=== PATIENT | female | born 1970 | race African-American/Black ===

== ENCOUNTER 2021-08-22 18:11 | Inpatient (IN) | payer MEDICAID ==
[~2021-08-22] VITALS: Ht 172.7 cm; Wt 317.5 kg
--- NOTE | 2021-08-22 22:28 | NUR ---
[facility] SWAB COLLECTED AND SENT TO LAB. PATIENT'S BELONGINGS LIST DONE.
--- NOTE | 2021-08-22 23:30 | NUR ---
3 LUMEN PICC LINE WAS INSERTED BY KEVIN VICKERS AT BED SIDE. DR KING SIGNED THE EMERGENCY CONCENT
--- NOTE | 2021-08-22 23:36 | NUR ---
blood and urine collected and sent to the lab
[2021-08-22 23:52] LABS: CALCIUM, SERUM 8.6 mg/dL (8.5-10.1); CARBON DIOXIDE 36 mmol/L (21-32); CHLORIDE 98 mmol/L (98-107); CREATININE 1.1 mg/dL (0.6-1.3); GLUCOSE 104 mg/dL (74-106); SODIUM SERUM 139 mmol/L (136-145); UREA NITROGEN, BLOOD 31 mg/dL (7-18)
[2021-08-23] VITALS (79 sets, daily range): BP systolic 39–183; BP diastolic 28–130
[2021-08-23] MEDS ORDERED: LEVOFLOXACIN 750 MG /D5W 150ML PIGGYBACK IV ONE
[2021-08-23 00:01] LABS: BILIRUBIN,URINE MODERATE (NEGATIVE); COLOR,URINE DARK YELLOW (YELLOW); LEUKOCYTE ESTERASE ,URINE NEGATIVE (NEGATIVE); NITRITE, URINE NEGATIVE (NEGATIVE); PROTEIN,URINE 100 mg/dl (NEGATIVE); UGLUCOSE NEGATIVE (NEGATIVE)
[2021-08-23 00:01] LABS: BASOPHILS % (AUTO) 0.1 % (0.0-2.0); EOSINOPHILS % (AUTO) 0.1 % (0.0-6.0); HEMATOCRIT 42 % (33-45); HEMOGLOBIN 12.3 g/dL (11.5-14.8); LYMPHOCYTES # (AUTO) 0.9 K/uL (0.8-4.8); LYMPHOCYTES % (AUTO) 7.6 % (20.0-44.0); MEAN CORPUSCULAR HGB CONC 29 g/dl (31.0-36.0); MEAN CORPUSCULAR VOLUME 82 fL (82-100); MONOCYTES # (AUTO) 0.4 K/uL (0.1-1.30); MONOCYTES % (AUTO) 3.8 % (2.0-12.0); NEUTROPHILS # (AUTO) 10.3 K/uL (1.8-8.9); NEUTROPHILS % (AUTO) 88.4 % (43.0-81.0); PLATELET COUNT (AUTO) 161 K/uL (150-450); RED BLOOD CELL COUNT(AUTO) 5.07 MIL/uL (4.0-5.2); WHITE BLOOD COUNT (AUTO) 11.7 K/uL (4.3-11.0)
[2021-08-23 00:05] LABS: ALANINE AMINOTRANSFERASE 42 U/L (12-78); ALBUMIN 3.2 g/dL (3.4-5.0); ALKALINE PHOSPHATASE 96 U/L (46-116); ASPARTATE AMINOTRANSFERASE 45 U/L (15-37); BILIRUBIN,DIRECT 0.5 mg/dL (0.0-0.2); BILIRUBIN,TOTAL 1.3 mg/dL (0.2-1.0); TOTAL PROTEIN, SERUM 8.1 g/dL (6.4-8.2)
[2021-08-23 00:22] LABS: D-DIMER 14.35 mg/L(FEU (0.17-0.50)
[2021-08-23] MEDS ORDERED: FUROSEMIDE 40 MG/4 ML VIAL ONE (00:25)
[2021-08-23] MEDS ORDERED: LEVOFLOXACIN 750 MG /D5W 150ML 150 ML IV ONE (00:25)
[2021-08-23 00:27] LABS: ABG BASE EXCESS 1.3 mmol/L; ABG OXYGEN SATURATION 94.5 % (92.0-98.5); ABG PCO2 121.7 mmHg (35.0-45.0); ABG PH 7.079 (7.350-7.450); ABG PO2 94.1 mmHg (75.0-100.0); AaDO2 497.2 mmHg; COHb 1.5 % (0.5-1.5); MetHb 0.4 % (0.0-1.5); O2Hb 92.7 % (94.0-97.0); SITE, ABG Right Radial; VENT MODE, BG NRB 15L
--- NOTE | 2021-08-23 00:28 | NUR ---
RT NOTE CRITICAL ABG VALUE GIVEN TO ER DOCTOR.
[2021-08-23] MEDS ORDERED: FUROSEMIDE 40 MG/4 ML VIAL IV ONE (00:30)
--- NOTE | 2021-08-23 00:44 | NUR ---
EPIC PANEL PAGED
--- NOTE | 2021-08-23 00:52 | NUR ---
RT NOTE PT PLACED ON BIPAP 20/5 100 % RATE 20 PER MD ORDERS. WILL CONTINUE TO MONITOR T/O SHIFT.
[2021-08-23] MEDS ORDERED: ACETAMINOPHEN 650 MG/SUPP.RECT RC PRN (01:00)
[2021-08-23] MEDS ORDERED: DEXTROSE 50%-WATER 50 ML DISP.SYRIN IV PRN (01:00)
[2021-08-23 01:21] LABS: C-REACTIVE PROTEIN 10.8 mg/dL (0.0-0.9)
--- NOTE | 2021-08-23 02:11 | NUR ---
RT NOTE UNABLE TO OBTAIN ABG AT THIS TIME, PT COMPLAINING IT HURTS, REMOVE THE NEEDLE, DONT DRAW ANY MORE BLOODAND MOVING AROUND TOO MUCH. PT IS MORE ALERT NOW THAN BEFORE SHE WAS PLACED ON BIPAP. PT REACHING FOR BIPAP MASK, IF TO REMOVE IT. RN NOTIFIED. NOTIFIED. SPO2 READING 96-99% ON CURRENT SETTING. WILL CONTINUE TO MONITOR T/O SHIFT
[2021-08-23] MEDS ORDERED: AZITHROMYCIN 500 MG VIAL ONE (03:05)
[2021-08-23] MEDS ORDERED: HEPARIN INFUSION/D5W 500 ML IV ONE (03:06)
--- NOTE | 2021-08-23 03:33 | NUR ---
RN/ICU-ADMITTED THIS 50 Y/O MORBIDLY OBESE FEMALE FROM ER VIA BARIATRIC BED, ACCOMPANIED BY ER STAFF.W/ DIAGNOSIS:RESPIRATORY FAILURE, PRESUMED COVID 19. ON NRB, IMMEDIATELY HOOKED UP TO BIPAP W/C WAS INITIALLY REFUSED BY PT. W/ SETTINGS RATE-20,I/E-20/5, SATS.-100%, INITIAL SATS-92%. ROUTINE ICU ADMISSION CARE INITIATED. PT. UNCOOPERATIVE, REFUSED TO HOSPITAL GOWN FROM [facility],REFUSED WHOLE BODY/SKIN CHECK, NOTED TO HAVE GENERALIZED, DEPENDENT EDEMA.. ON DROPLET/AIRBORNE ISOLATION R/O COVID 19, AWAITING PCR RESULT.AFEBRILE,
--- NOTE | 2021-08-23 03:47 | NUR ---
RT NOTE TRANSPORTED PT FROM ER BED 8 TO ICU 255, ON NRB 15LPM. ONCE PLACED IN BED 255 PLACED PT BACK ON BIPAP. WILL ATTEMPT TO DO ABG AGAIN. PLUGGED INTO RED OUTLET, AMBU BAG AT BEDSIDE ALONG WITH NRB. NO SOB NOTED. INFORMED PT OF ABG TO BE DONE SOON. WILL CONTINUE TO MONITOR T/O SHIFT.
[2021-08-23] MEDS: AZITHROMYCIN 500 MG in IV D5W 250 ML IV SCH (03:50)
--- NOTE | 2021-08-23 03:52 | NUR ---
pt transferred to icu per acls protocol.
--- NOTE | 2021-08-23 04:03 | NUR ---
RT NOTE RT LEAD ATTEMPTED TO PREFORM ABG, ONCE SHE WAS STUCK WITH NEEDLE SHE SAID: "ITS TOO PAINFUL, REMOVE IT". ABG NOT PREFORMED. SEALANT MIXER NOTIFIED. LEFT ON CURRENT BIPAP SETTING. WILL CONTINUE TO MONITOR T/O SHIFT.
--- NOTE | 2021-08-23 04:14 | NUR ---
RN/ICU- PT. WILL BE STARTED ON HEPARIN DRIP NON-ACS PROTOCOL. SPOKE TO PH. LEE REGARDING APPROPRIATE DOSING FOR THIS 318KG. PT.
[2021-08-23] MEDS ORDERED: HEPARIN SODIUM, PORCINE 5000 UNITS/1 ML VIAL IV ONE (04:30)
[2021-08-23] MEDS: HEPARIN INFUSION/D5W 500 ML IV PRN ×2 (04:46→17:28)
--- NOTE | 2021-08-23 05:00 | NUR ---
RN NOTE RECEIVED PATIENT IN BED ALERT ORIENTED X3 VERBALLY RESPONSIVE ON BIPAP AND HEPARIN DRIP CONTINUE TO MONITOR.
--- NOTE | 2021-08-23 05:00 | NUR ---
RN/ICU-PT. ASLEEP, AROUSABLE, ON HEPARIN DRIP AT 1800UNIT/HR PER NON ACS PROTOCOL. PTT CHECK WILL BE AT 1100. PT. CARE GIVEN TO MELCHOR PHILLIPS
--- NOTE | 2021-08-23 05:56 | NUR ---
RN NOTE PATIENT REFUSED SKIN ASSESSMENT AND REFUSED LAB ABG EXPLAINED RISKS STILL REFUSED.
[2021-08-23] MEDS: BLOOD SUGAR DIAGNOSTIC 1 EACH STRIP IN SCH ×4 (05:58→23:45)
[2021-08-23] MEDS: INSULIN REGULAR, HUMAN 100 UNIT/ML 3 ML VIAL SQ PRN ×2 (06:38→13:30)
--- NOTE | 2021-08-23 07:15 | NUR ---
RN NOTES RECEIVED PT ON BED, LETHARGIC , DOES NOT FOLLOW COMMAND, PT ON BIPAP , O2 SAT IN LOW 90'S , NOTIFIED , STAT ABG ORDERED, DR WELLS NOTIFIED REGARDING ABG RESULTS , ORDER RECEIVED TO INTUBATED PT , NURSING SUP NOTIFIED,PT IS ABOUT 700 LB ON BIG BOY BED, CONTINUE TO MONITOR .
--- NOTE | 2021-08-23 07:30 | NUR ---
RN NOTE PATIENT REMAINS ON ALERT ORIENTED X3 VERBALLY RESPONSIVE ON BIPAP AND HEPARIN DRIP ENDORSE NEXT COMING SHIFT FOR CONTINUATION OF CARE.
[2021-08-23 07:33] LABS: ABG BASE EXCESS 4.8 mmol/L; ABG OXYGEN SATURATION 99.2 % (92.0-98.5); ABG PCO2 144.4 mmHg (35.0-45.0); ABG PO2 206.6 mmHg (75.0-100.0); COHb 1.1 % (0.5-1.5); MetHb 0.5 % (0.0-1.5); O2Hb 97.6 % (94.0-97.0); SITE, ABG Right Radial; VENT MODE, BG BIPAP 20/5
[2021-08-23] MEDS: FUROSEMIDE 40 MG/4 ML VIAL IV SCH ×2 (08:11→16:20)
[2021-08-23] MEDS: DEXAMETHASONE SOD PHOSPHATE 10 MG/ML VIAL IV SCH ×2 (08:11→16:21)
[2021-08-23 08:34] LABS: CALCIUM, SERUM 9.1 mg/dL (8.5-10.1); CREATININE 1.1 mg/dL (0.6-1.3)
[2021-08-23 08:50] LABS: BASOPHILS % (AUTO) 0.1 % (0.0-2.0); EOSINOPHILS % (AUTO) 0.1 % (0.0-6.0); HEMATOCRIT 42 % (33-45); HEMOGLOBIN 12.2 g/dL (11.5-14.8); LYMPHOCYTES # (AUTO) 0.6 K/uL (0.8-4.8); MEAN CORPUSCULAR HGB CONC 29 g/dl (31.0-36.0); MEAN CORPUSCULAR VOLUME 85 fL (82-100); MONOCYTES # (AUTO) 0.5 K/uL (0.1-1.30); MONOCYTES % (AUTO) 4.4 % (2.0-12.0); NEUTROPHILS # (AUTO) 10.2 K/uL (1.8-8.9); NEUTROPHILS % (AUTO) 90.4 % (43.0-81.0); PLATELET COUNT (AUTO) 165 K/uL (150-450); RED BLOOD CELL COUNT(AUTO) 4.96 MIL/uL (4.0-5.2); WHITE BLOOD COUNT (AUTO) 11.3 K/uL (4.3-11.0)
[2021-08-23] MEDS: NOREPINEPHRINE 8 MG in IV NS 0.9% 242 ML IV PRN ×2 (09:00→10:50)
[2021-08-23] MEDS ORDERED: ENOXAPARIN SODIUM 40 MG/0.4 ML DISP.SYRIN SQ SCH (09:00)
--- NOTE | 2021-08-23 09:00 | NUR ---
RN NOTES PT INTUBATED PER DR WELLS ORDER , CONTINUE TO MONITOR .
--- NOTE | 2021-08-23 09:00 | NUR ---
RN NOTES MILES AND OGT INSERTED.
--- NOTE | 2021-08-23 09:00 | NUR ---
RT Pt was orally intubated with a 7.5 ET tube secured at 25cm at the lip line, positive CO2 color change on CO2 indicator, equal bilateral breath sounds, and chest rise noted. Pt placed on mechanical ventilation with noted settings. Vent alarms are set and audible with BVM by bedside. Addendum: 08/23/21 at 0943 by ZBIGNIEW NGUYỄN RT Amended: Links added.
[2021-08-23] MEDS: PROPOFOL 100 ML IV PRN ×6 (09:42→21:19)
--- NOTE | 2021-08-23 11:00 | NUR ---
RN NOTES BP IS VERY LABILE , PT IS 700 LB , DR CARRILLO NOTIFIED, ORDER RECEIVED FOR A- LINE , NURSING SUP NOTIFIED FOR A- LINE PLACEMENT .
[2021-08-23 11:24] LABS: ABG BASE EXCESS 0.2 mmol/L; ABG OXYGEN SATURATION 97.7 % (92.0-98.5); ABG PCO2 45.2 mmHg (35.0-45.0); ABG PH 7.374 (7.350-7.450); ABG PO2 90.4 mmHg (75.0-100.0); AaDO2 432.5 mmHg; COHb 1.2 % (0.5-1.5); MetHb 0.2 % (0.0-1.5); O2Hb 96.3 % (94.0-97.0); SITE, ABG Right Radial
[2021-08-23] MEDS: NOREPINEPHRINE 32 MG in IV NS 0.9% 218 ML IV PRN ×2 (11:44→17:29)
--- NOTE | 2021-08-23 13:00 | NUR ---
RN NOTES PT ON BARIATRIC BED ON AUTOMATIC TURNING.
[2021-08-23] MEDS ORDERED: ETOMIDATE 2 MG/ML VIAL IV ONE (13:47)
[2021-08-23] MEDS ORDERED: SUCCINYLCHOLINE CHLORIDE 20 MG/ML VIAL IV ONE (13:47)
[2021-08-23 13:56] LABS: BAND % (MANUAL) 1 % (0.0-5.0); LYMPHOCYTES % (MANUAL) 6 % (16-48); MONOCYTES % (MANUAL) 4 % (0-11.0); NEUTROPHILS % (MANUAL) 89 (42-76)
--- NOTE | 2021-08-23 15:00 | NUR ---
RN NOTES PT INTUBATED AND SEDATED, ON LEVO FOR BP SUPPORT, CONTINUE TO MONITOR .
--- NOTE | 2021-08-23 18:00 | NUR ---
RN NOTES PT REMAINS INTUBATED AND SEDATED, ON DIPRIVAN AT 20MCG/KG/MIN, LEVO DRIP FOR BP SUPPORT AT .06MCG/KG/MIN, ON HEPARIN DRIP AT 1800 U/HR, TOLERAING VENT SETTING WELL, R UPPER ARM PICC LINE SITE CLEAN, DRY AND INTACT, MILES DRAINING TO GRAVITY ,SR UP x3, CALL WITHIN EASY REACH, WILL ENDORSE TO ARCHEOLOGIST NURSE FOR CONTINUITY OF CARE.
--- NOTE | 2021-08-23 20:45 | NUR ---
ICU/NETWORK DESIGN ARCHITECT PRINTER SLOTTER FEEDER CAME TO DO LOWER EXTREMITY DOPPLER STUDY TO R/O DVT TO LEGS. WAS UNABLE DUE TO PT'S SIZE OF LEGS THERE WASN'T A CLEAR READ ON THIS. CHARGE NURSE MADE AWARE OF THIS.
--- NOTE | 2021-08-23 21:20 | NUR ---
ICU/CONSUMER BANKER CALLED NURSING SUP. ABOUT GETTING HELP WITH PM CARE FOR THIS PT DUE TO THE FACT THAT THIS PT IS 700LBS AND UNABLE TO DO THIS WITH THE STAFF ON THE FLOOR. PT IS ON A TURNING BED. BUT UNABLE TO LIFT PT WITH ONLY 3 PEOPLE. SHE SAID SHE WOULD CALL MD BACK. CHARGE NURSE MADE AWARE OF THIS.
--- NOTE | 2021-08-23 23:30 | NUR ---
ICU/CAT WAGON OPERATOR PT'S BLOOD PRESSURE HAS BEEN STABLE, NOTIFED SPRING FORGER NURSE LEVO DRIP WAS DECREASED DOWN FOR STABLE BLOOD PRESSURE. WILL CONTINUE TO MONITOR THIS PT'S BP.
[2021-08-24] VITALS (90 sets, daily range): BP systolic 81–135; BP diastolic 56–98
[2021-08-24] MEDS: PROPOFOL 100 ML IV PRN ×10 (00:26→22:30)
[2021-08-24] MEDS: LEVOFLOXACIN 750 MG /D5W 150ML 750 MG in PREMIX 1 EA IV SCH (00:26)
--- NOTE | 2021-08-24 01:10 | NUR ---
ICU/CONSERVATION ENFORCEMENT OFFICER [employer] CALLED [employer] RESOLUTES OF THE DOPPLER STUDY WHICH WAS DONE EARLY IN SHIFT. PT IS CURRENTLY ON A HEPARIN DRIP. NOTIFED PRENATAL NURSE BOURGEOIS. NO ORDERS WERE RECIEVED.
[2021-08-24] MEDS: AZITHROMYCIN 500 MG in IV D5W 250 ML IV SCH (02:05)
--- NOTE | 2021-08-24 02:46 | NUR ---
ICU/RISK MANAGEMENT INTERNSHIP RT WAS ABLE TO TITRATE FIO2 DOWN TO 40% FROM 60. WILL CONTINUE TO MONITOR THIS PT AND HER SATURATION. 0230-LEVO WAS PLACED ON HOLD FOR STABLE BLOOD PRESSURE. WILL CONTINUE TO MONITOR THIS PT AND HER BLOOD PRESSURE.
--- NOTE | 2021-08-24 03:30 | NUR ---
ICU/AWARD CLERK LEVO WAS RESTARTED DUE TO LOW BLOOD PRESSURE. WILL CONTINUE TO MONITOR THIS PT AND HIS BP.
[2021-08-24 04:43] LABS: BASOPHILS % (AUTO) 0.3 % (0.0-2.0); HEMATOCRIT 40 % (33-45); HEMOGLOBIN 11.7 g/dL (11.5-14.8); LYMPHOCYTES # (AUTO) 0.5 K/uL (0.8-4.8); MEAN CORPUSCULAR HGB CONC 29 g/dl (31.0-36.0); MEAN CORPUSCULAR VOLUME 81 fL (82-100); MONOCYTES # (AUTO) 0.3 K/uL (0.1-1.30); MONOCYTES % (AUTO) 2.3 % (2.0-12.0); NEUTROPHILS # (AUTO) 12.2 K/uL (1.8-8.9); NEUTROPHILS % (AUTO) 93.4 % (43.0-81.0); PLATELET COUNT (AUTO) 147 K/uL (150-450); RED BLOOD CELL COUNT(AUTO) 4.89 MIL/uL (4.0-5.2)
[2021-08-24 05:43] LABS: ALBUMIN 2.7 g/dL (3.4-5.0); BILIRUBIN,TOTAL 1.5 mg/dL (0.2-1.0); CALCIUM, SERUM 8.4 mg/dL (8.5-10.1); CREATININE 0.8 mg/dL (0.6-1.3); MAGNESIUM 2.2 mg/dL (1.8-2.4); PHOSPHORUS 3.5 mg/dL (2.5-4.9); POTASSIUM 4.2 mmol/L (3.5-5.1); TOTAL PROTEIN, SERUM 7.2 g/dL (6.4-8.2)
[2021-08-24 06:27] LABS: THYROID STIMULATING HORMONE 0.517 uIU/mL (0.358-3.74)
--- NOTE | 2021-08-24 06:30 | NUR ---
ICU/MEDIA SALES REPRESENTATIVE NURSING SUP. AWARE THAT UNABLE TO PROVIDE CARE FOR THIS PT DUE TO THE SIZE. HOUSE SUP. SAID THAT TODAY DAY SHIFT WILL BE GIVEN A FASHION BUYING INTERNSHIP TO HELP WITH CARE FOR THIS PT.
[2021-08-24] MEDS: BLOOD SUGAR DIAGNOSTIC 1 EACH STRIP IN SCH ×4 (06:38→23:29)
[2021-08-24] MEDS: INSULIN REGULAR, HUMAN 100 UNIT/ML 3 ML VIAL SQ PRN ×3 (06:39→17:05)
[2021-08-24] MEDS: HEPARIN INFUSION/D5W 500 ML IV PRN ×2 (06:45→20:06)
--- NOTE | 2021-08-24 07:42 | NUR ---
RN OPENING NOTES; RECEIVED PT IN BED, IN SUPINE POS. [facility] WITH SETTINGS ORDERED. PT ON HEPARIN 1,800U, PROPOFOL AT 20MCG, LEVO 0.02MCG. PATENT AND INFUSING WELL. PT IS SEDATED. ALL SAFETY MEASURES RENDERED, BED IN LOWEST POS. LOCKED, WITH CALL LIGHT WITHIN REACH. WILL CONTINUE TO MONITOR.
[2021-08-24] MEDS: DEXAMETHASONE SOD PHOSPHATE 10 MG/ML VIAL IV SCH ×2 (08:23→16:05)
[2021-08-24] MEDS: FUROSEMIDE 40 MG/4 ML VIAL IV SCH ×2 (08:23→16:05)
[2021-08-24 10:56] LABS: ABG BASE EXCESS 9.4 mmol/L; ABG OXYGEN SATURATION 94.5 % (92.0-98.5); ABG PCO2 49.8 mmHg (35.0-45.0); ABG PH 7.461 (7.350-7.450); ABG PO2 72.8 mmHg (75.0-100.0); AaDO2 155.1 mmHg; COHb 0.9 % (0.5-1.5); MetHb 0.2 % (0.0-1.5); O2Hb 93.5 % (94.0-97.0); SITE, ABG Right Radial; VENT MODE, BG AC 15 550 40% +5
--- NOTE | 2021-08-24 11:03 | NUR ---
RN NOTES; BS TAKEN WITH RESULT OF 117. NO INSULIN GIVEN PER SLIDING SCALE. WILL CONTINUE TO MONITOR.
--- NOTE | 2021-08-24 15:05 | NUR ---
TOÑO received eval for: Pt. is 700 LB. TOÑO spoke with ICU nurse, Irvin regarding pt.'s condition. Pt. is currently sedated and intubated. TOÑO is not able to interview pt. at this time.
--- NOTE | 2021-08-24 18:46 | NUR ---
RN CLOSING NOTES PT IN BED SEDATED. PT ON MECH. VENT WITH SETTINGS ORDERED. PT ON HEPARIN 1,800U, PROPOFOL AT 20MCG AND LEVO RUNNING AT 0.01 MCG. JENNY ML PATENT, FLUSHED AND RUNNING WELL. BILATERAL SOFT WRIST RESTRAINS RENEWED PER PROTOCOL AT 1307.ALL MEDICATION GIVEN AND TOLERATED WELL. PT KEPT CLEAN, DRY, AND COMFORTABLE. ALL SAFETY MEASURES RENDERED, BED IN LOWEST POS. LOCKED, SIDE RAILS UP X3, WITH CALL LIGHT WITHIN REACH. NO SIGNIFICANT CHANGES IN PT HEALTH STATUS DURING SHIFT. WILL ENDORSE TO DIESEL AUTOMOTIVE TECHNICIAN RN.
--- NOTE | 2021-08-24 19:45 | NUR ---
ICU/DIELECTRIC TESTING MACHINE OPERATOR PT CARE WAS ATTEMPTED WITH ONLY 3 PEOPLE NURSES HOWEVER THIS WAS UNSUCCESSFUL. UNAWARE OF SKIN ISSUES ON THE BACK
--- NOTE | 2021-08-24 20:15 | NUR ---
ICU/BARISTA PT'S BLOOD PRESSURE IS STABLE AT 120'S THROUGH X3 CYCLES. LEVO WAS PUT ON HOLD AT THIS TIME. WILL CONTINUE TO CLOSELY MONITOR THIS PT.
--- NOTE | 2021-08-24 21:40 | NUR ---
ICU/GRAPHIC USER INTERFACE DESIGNER NURSING SUP. WAS NOTIFED ABOUT GETTING HELP WITH PM CARE FOR THIS PT DUE TO THE FACT THAT THIS PT IS 700LBS AND UNABLE TO DO THIS WITH THE STAFF ON THE FLOOR.PT WAS TRANSFERED WITH 10 PEOPLE. PT IS ON A TURNING BED. UNABLE TO LIFT PT WITH CURRENT NURSING STAFF OF 4 PEOPLE.
[2021-08-25] VITALS (34 sets, daily range): BP systolic 101–127; BP diastolic 56–91
[2021-08-25] MEDS: LEVOFLOXACIN 750 MG /D5W 150ML 750 MG in PREMIX 1 EA IV SCH (00:34)
[2021-08-25] MEDS: PROPOFOL 100 ML IV PRN ×4 (00:40→08:02)
[2021-08-25] MEDS: AZITHROMYCIN 500 MG in IV D5W 250 ML IV SCH (02:15)
[2021-08-25 05:12] LABS: CALCIUM, SERUM 8.9 mg/dL (8.5-10.1); CREATININE 0.7 mg/dL (0.6-1.3); POTASSIUM 3.6 mmol/L (3.5-5.1)
[2021-08-25 05:17] LABS: BASOPHILS % (AUTO) 0.1 % (0.0-2.0); HEMATOCRIT 39 % (33-45); HEMOGLOBIN 11.8 g/dL (11.5-14.8); LYMPHOCYTES # (AUTO) 0.3 K/uL (0.8-4.8); LYMPHOCYTES % (AUTO) 3.6 % (20.0-44.0); MEAN CORPUSCULAR HGB CONC 31 g/dl (31.0-36.0); MEAN CORPUSCULAR VOLUME 80 fL (82-100); MONOCYTES # (AUTO) 0.3 K/uL (0.1-1.30); MONOCYTES % (AUTO) 3.7 % (2.0-12.0); NEUTROPHILS # (AUTO) 7.6 K/uL (1.8-8.9); NEUTROPHILS % (AUTO) 92.6 % (43.0-81.0); PLATELET COUNT (AUTO) 122 K/uL (150-450); RED BLOOD CELL COUNT(AUTO) 4.85 MIL/uL (4.0-5.2); WHITE BLOOD COUNT (AUTO) 8.2 K/uL (4.3-11.0)
[2021-08-25] MEDS: BLOOD SUGAR DIAGNOSTIC 1 EACH STRIP IN SCH ×4 (05:20→23:51)
[2021-08-25] MEDS ORDERED: HEPARIN SODIUM, PORCINE 5000 UNITS/1 ML VIAL IVF ONE (06:30)
--- NOTE | 2021-08-25 06:37 | NUR ---
ICU/ESL TUTOR PTT CAME BACK AY 43.6 THIS WAS ADJUSTED PER HEPARIN PROTOCOL. INCREASED AND ADJUSTED FOR A NEW RATE OF 1999.
--- NOTE | 2021-08-25 07:27 | NUR ---
RN OPENING NOTES; RECEIVED PT IN BED, IN SUPINE POS. PT ON MECH VENT WITH SETTINGS ORDERED. PT ON HEPARIN 2,000U, PTT SCHEDULED FOR NOON. PROPOFOL AT 20MCG. PATENT AND INFUSING WELL. PT IS SEDATED. ALL SAFETY MEASURES RENDERED, BED IN LOWEST POS. LOCKED, WITH CALL LIGHT WITHIN REACH. WILL CONTINUE TO MONITOR.
--- NOTE | 2021-08-25 07:44 | NUR ---
WOUND CARE CONSULT: REVIEWED CHART AND NURSING DOCUMENTATION WHICH INDICATES MORBIDLY OBESE PATIENT CURRENTLY INTUBATED. PT IS ON BARIATRIC BED ([place] ETS AIR BED). RECOMMENDATIONS MADE FOR SKIN PROTECTION. DISCUSSED WITH NURSING STAFF. MD IN AGREEMENT WITH PLAN OF CARE.
[2021-08-25] MEDS: FUROSEMIDE 40 MG/4 ML VIAL IV SCH ×2 (08:00→16:20)
[2021-08-25] MEDS: DEXAMETHASONE SOD PHOSPHATE 10 MG/ML VIAL IV SCH ×2 (08:00→16:19)
[2021-08-25] MEDS: HEPARIN INFUSION/D5W 500 ML IV PRN ×2 (08:01→20:40)
[2021-08-25] MEDS ORDERED: Z GUARD REMEDY 4 OZ OINT TP PRN (09:00)
[2021-08-25] MEDS: Z GUARD REMEDY 4 OZ OINT TP SCH (09:19)
[2021-08-25] MEDS: INSULIN REGULAR, HUMAN 100 UNIT/ML 3 ML VIAL SQ PRN ×2 (11:10→17:04)
--- NOTE | 2021-08-25 11:10 | NUR ---
RN NOTES; B/S TAKEN WITH RESULTS OF 114. NO COVERAGE NEEDED PER SLIDING SCALE.
[2021-08-25 11:13] LABS: ABG BASE EXCESS 13.1 mmol/L; ABG OXYGEN SATURATION 98.4 % (92.0-98.5); ABG PCO2 48.9 mmHg (35.0-45.0); ABG PH 7.509 (7.350-7.450); ABG PO2 108.7 mmHg (75.0-100.0); AaDO2 120.3 mmHg; COHb 0.9 % (0.5-1.5); MetHb 0.3 % (0.0-1.5); O2Hb 97.2 % (94.0-97.0); PEEP,BG 5 cm H2O; SITE, ABG Right Radial
[2021-08-25] MEDS ORDERED: DC PROPOFOL WHEN EXTUBATED XX PRN (11:30)
[2021-08-25] MEDS ORDERED: MAGN200T4 PO (15:10)
[2021-08-25] MEDS ORDERED: AMIN887L PO (15:10)
[2021-08-25] MEDS ORDERED: DILT-32 PO (15:10)
[2021-08-25] MEDS ORDERED: CALC500T52 PO (15:10)
[2021-08-25] MEDS ORDERED: DILT180C93 PO (15:10)
[2021-08-25] MEDS ORDERED: DOCU-141 PO (15:10)
[2021-08-25] MEDS ORDERED: MORP30TA PO (15:10)
--- NOTE | 2021-08-25 19:02 | NUR ---
RN CLOSING NOTES; PT IN BED IN SUPINE POS. A/OX2 WITH EPISODES OF CONFUSION. PT WAS ON SEDATION VACATION STARTING AT 9AM. PT EXTUBATED AT 11:20A. PT TOLERATING ROOM AIR SATTING BETWEEN 90-92%. PER OKAY ON FOR PT TO BE ON ROOM AIR IF 02 SAT IS 88% OR ABOVE. PT HAD LARGE BOWELL MOVEMENT TODAY. PT ON HEPARIN DRIP AT 2,000U. PTT RESULTS FOR NOON 54.6, NO CHANGE IN RATE PER PROTOCOL. PTT SCHEDULED FOR AT 5AM. PT IS FULL ASSIST NEEDED 6 PEOPLE TO HELP TURN, REPOSITION AND CHANGE LINIENS. BILATERAL RESTRAINTS DISCONTINUED AT APPROXIMATELY 11:30A. ALL MEDICATION GIVEN AND TOLERATED WELL. PT KEPT CLEAN, DRY, AND COMFORTABLE. ALL SAFETY MEASURES RENDERED. BED IN LOWEST POS, LOCKED, SIDE RAILS X3 WITH CALL LIGHT WITHIN REACH. WILL ENDORSE TO CAREER CONSULTANT RN. PT IN STABLE CONDITION.
[2021-08-26] VITALS (16 sets, daily range): BP systolic 98–120; BP diastolic 55–81
--- NOTE | 2021-08-26 00:30 | NUR ---
ICU/WELL LOGGER PT WAS GIVEN PM CARE WITH 5 PEOPLE ASST. WITH TURNING AND REPOSITIONING. PT TOLERATED THIS WELL. PT REMAINS ON 2 LITERS VIA N/C WITH SATURATION AT 98%. CALL LIGHT WITHIN REACH.
[2021-08-26] MEDS: LEVOFLOXACIN 750 MG /D5W 150ML 750 MG in PREMIX 1 EA IV SCH (00:51)
--- NOTE | 2021-08-26 01:04 | NUR ---
PT PLACED ON NOC BIPAP. RN AWARE. WILL CONTINUE TO MONITOR.
--- NOTE | 2021-08-26 01:10 | NUR ---
ICU/COMMUNICATIONS EQUIPMENT OPERATOR PT WAS PLACED ON NIGHT BIPAP. CALL LIGHT WITHIN REACH. WILL CONTINUE TO MONITOR THIS PT AND HER SATURATION.
[2021-08-26] MEDS: AZITHROMYCIN 500 MG in IV D5W 250 ML IV SCH (01:56)
--- NOTE | 2021-08-26 02:45 | NUR ---
ICU/EXPLOSIVES DETONATOR PT TOOK OFF BIPAP AND WANTED THE N/C PUT BACK ON. THIS WAS DONE. WILL MONITOR THIS PT.
--- NOTE | 2021-08-26 03:28 | NUR ---
PT DID NOT WANT TO USE BIPAP ANYMORE. PT PLACED ON 2L NC O2 SAT 97% NO SOB. RN AWARE. CONTINUE TO MONITOR.
[2021-08-26 04:44] LABS: BASOPHILS % (AUTO) 0.2 % (0.0-2.0); HEMATOCRIT 37 % (33-45); HEMOGLOBIN 11.4 g/dL (11.5-14.8); LYMPHOCYTES # (AUTO) 0.4 K/uL (0.8-4.8); LYMPHOCYTES % (AUTO) 4.8 % (20.0-44.0); MEAN CORPUSCULAR HGB CONC 30 g/dl (31.0-36.0); MEAN CORPUSCULAR VOLUME 79 fL (82-100); MONOCYTES # (AUTO) 0.7 K/uL (0.1-1.30); MONOCYTES % (AUTO) 8.8 % (2.0-12.0); NEUTROPHILS # (AUTO) 6.9 K/uL (1.8-8.9); NEUTROPHILS % (AUTO) 86.2 % (43.0-81.0); PLATELET COUNT (AUTO) 121 K/uL (150-450); RED BLOOD CELL COUNT(AUTO) 4.72 MIL/uL (4.0-5.2)
[2021-08-26 05:18] LABS: CALCIUM, SERUM 8.2 mg/dL (8.5-10.1); CREATININE 0.6 mg/dL (0.6-1.3)
[2021-08-26] MEDS: BLOOD SUGAR DIAGNOSTIC 1 EACH STRIP IN SCH ×4 (05:54→23:50)
--- NOTE | 2021-08-26 06:22 | NUR ---
ICU/LEAD RADIATION THERAPIST PT'S MORNING LAB OF PTT 59.5, THERE IS NO CHANGE WITH THIS DRIP. IN THE MORNING WILL BE THE NEXT PTT.
--- NOTE | 2021-08-26 07:10 | NUR ---
RN OPENING NOTES; RECEIVED PT IN BED, A/OX1. PT ON HEPARIN DRIP AT 2000U, RUNNING WELL WITH NO SIGNS ON INFILTRATION. PT ABLE TO VERBALIZE NEEDS, NO C/O PAIN AT THIS TIME. PT ON ROOM AIR. NO SOB NOTED. NO DISTRESS NOTED. SAFETY MEASURES RENDERED, BED LOCKED, IN LOWEST POS. SIDE RAILS X3 WITH CALL LIGHT WITHIN REACH. WILL CONTINUE TO MONITOR.
[2021-08-26] MEDS: Z GUARD REMEDY 4 OZ OINT TP SCH (08:11)
[2021-08-26] MEDS: FUROSEMIDE 40 MG/4 ML VIAL IV SCH (08:11)
[2021-08-26] MEDS: DEXAMETHASONE SOD PHOSPHATE 10 MG/ML VIAL IV SCH (08:12)
[2021-08-26] MEDS: POTASSIUM CHLORIDE 20 MEQ TAB.PRT.SR PO SCH ×3 (08:40→11:03)
[2021-08-26] MEDS ORDERED: APIXABAN 5 MG TABLET PO SCH (09:00)
[2021-08-26] MEDS: DOCUSATE SODIUM 250 MG CAPSULE PO SCH ×2 (09:16→16:32)
[2021-08-26 10:01] LABS: ABG BASE EXCESS 16.1 mmol/L; ABG OXYGEN SATURATION 93.1 % (92.0-98.5); ABG PCO2 47.9 mmHg (35.0-45.0); ABG PH 7.546 (7.350-7.450); ABG PO2 64.3 mmHg (75.0-100.0); AaDO2 78.8 mmHg; COHb 1.2 % (0.5-1.5); MetHb 0.2 % (0.0-1.5); O2Hb 91.8 % (94.0-97.0); SITE, ABG Right Radial; VENT MODE, BG NASAL CANNULA
[2021-08-26] MEDS: INSULIN REGULAR, HUMAN 100 UNIT/ML 3 ML VIAL SQ PRN ×2 (11:19→23:51)
--- NOTE | 2021-08-26 11:20 | NUR ---
RN NOTES; B/S TAKEN WITH RESULT OF 119. NO COVERAGE GIVEN PER SLIDING SCALE. WILL CONTINUE TO MONITOR.
--- NOTE | 2021-08-26 11:43 | NUR ---
RN NOTES; PT TO BE TRANSFERRED TO ROOM 310. REPORT GIVEN TO MELCHOR MOULTON.
[2021-08-26] MEDS: MORPHINE SULFATE SR 15 MG TABLET.SA PO SCH ×2 (12:03→20:50)
--- NOTE | 2021-08-26 12:55 | NUR ---
RN NOTES; PT A/OX1-2, NO C/O SOB, NO DISTRESS NOTED. ALL MORNING AND AFTERNOON MEDICATIONS GIVEN AND TOLERATED WELL. PT TRANSFERRED TO ROOM 310 WITH ASSISTANCE OF 5 STAFF. VITAL SIGNS STABLE. PT LEFT UNIT IN STABLE CONDITION.
--- NOTE | 2021-08-26 12:57 | NUR ---
VP INFORMATION TECHNOLOGYLACING PRESSER NOTES RECEIVED TRANSFER FROM ICU. PATIENT A/O X1 TO 2; ABLE TO MAKE NEEDS KNOWN. PATIENT ON OXYGEN THERAPY AT 3 LPM VIA NASAL CANNULA SATURATING WELL AT THIS TIME; NO SOB NOTED. TELE MONITOR WITH A CURRENT READING OF SR 81. NO COMPLAINS OF PAIN. JENNY MIDLINE IN PLACE. MILES CATH PRESENT. SAFETY PRECAUTIONS IN PLACE; BED IN LOW POSITION AND LOCKED, RAILS UP X2, CALL LIGHT WITHIN REACH. WILL CONTINUE TO MONITOR PATIENT.
[2021-08-26] MEDS: APIXABAN 5 MG TABLET PO SCH (16:36)
--- NOTE | 2021-08-26 18:30 | NUR ---
POULTRY PROCESSING SUPERVISOR CLOSING NOTES PATIENT REMAINS IN BED, A/O X2; ABLE TO MAKE NEEDS KNOWN. PATIENT ON OXYGEN THERAPY AT 3 LPM VIA NASAL CANNULA SATURATING WELL DURING SHIFT; NO SOB NOTED. TELE MONITOR WITH A CURRENT READING OF SR 74. NO COMPLAINS OF PAIN. JENNY MIDLINE IN PLACE. MILES CATH PRESENT WITH 500 MLS OUTPUT. SAFETY PRECAUTIONS IN PLACE; BED IN LOW POSITION AND LOCKED, RAILS UP X2, CALL LIGHT WITHIN REACH. WILL ENDORSE TO POULTRY HATCHERY SUPERVISOR NURSE.
--- NOTE | 2021-08-26 19:09 | NUR ---
CLIENT OPERATIONS MANAGER CLOSING NOTES PATIENT REMAINS IN BED, A/O X2; ABLE TO MAKE NEEDS KNOWN. PATIENT ON OXYGEN THERAPY AT 3 LPM VIA NASAL CANNULA; NO SOB NOTED. TELE MONITOR WITH A CURRENT READING OF SR 74. NO COMPLAINS OF PAIN. JENNY [place]ITT[place] IN PLACE. GINGER DEUTSCH PRESENT. SAFETY PRECAUTIONS IN PLACE; BED IN LOW POSITION AND LOCKED, RAILS UP X2, CALL LIGHT WITHIN REACH. WILL CONTINUE TO MONITOR. Addendum: 08/27/21 at 0654 by VASQUEZ LORD RN opening notes
[2021-08-26] MEDS: LEVOFLOXACIN (250MG) 250 MG TABLET PO SCH ×2 (20:50→20:57)
--- NOTE | 2021-08-26 20:57 | NUR ---
RN CASE MANAGEMENT NOTES PT REFUSED THE ANTIBIOTIC X3 RISK AND BENEFITS EXPLAINED X3. WILL CONTINUE TO MONITOR.
[2021-08-27] VITALS: BP 112/77
[2021-08-27] MEDS: AZITHROMYCIN 500 MG in IV D5W 250 ML IV SCH (02:34)
[2021-08-27 04:00] VITALS: BP 102/68
[2021-08-27] MEDS: MORPHINE SULFATE SR 15 MG TABLET.SA PO SCH ×3 (05:39→22:45)
[2021-08-27] MEDS: BLOOD SUGAR DIAGNOSTIC 1 EACH STRIP IN SCH ×3 (05:55→17:21)
[2021-08-27] MEDS: INSULIN REGULAR, HUMAN 100 UNIT/ML 3 ML VIAL SQ PRN (05:55)
--- NOTE | 2021-08-27 06:55 | NUR ---
ROAD COMMISSIONER CLOSING NOTES PATIENT REMAINS IN BED, A/O X2; ABLE TO MAKE NEEDS KNOWN. PATIENT ON OXYGEN THERAPY AT 3 LPM VIA NASAL CANNULA; NO SOB NOTED. TELE MONITOR WITH A CURRENT READING OF SR 74. NO COMPLAINS OF PAIN. JENNY MIDLINE IN PLACE. MILES CATH PRESENT. SAFETY PRECAUTIONS IN PLACE; BED IN LOW POSITION AND LOCKED, RAILS UP X2, CALL LIGHT WITHIN REACH. WILL ENDORSE CARE TO DAY SHIFT NURSE.
[2021-08-27 07:28] LABS: CALCIUM, SERUM 8.7 mg/dL (8.5-10.1); CREATININE 0.5 mg/dL (0.6-1.3)
[2021-08-27 07:38] LABS: BASOPHILS % (AUTO) 0.1 % (0.0-2.0); EOSINOPHILS % (AUTO) 0.2 % (0.0-6.0); HEMATOCRIT 43 % (33-45); HEMOGLOBIN 12.7 g/dL (11.5-14.8); LYMPHOCYTES % (AUTO) 10.7 % (20.0-44.0); MEAN CORPUSCULAR HGB CONC 30 g/dl (31.0-36.0); MEAN CORPUSCULAR VOLUME 80 fL (82-100); MONOCYTES # (AUTO) 0.9 K/uL (0.1-1.30); MONOCYTES % (AUTO) 9.2 % (2.0-12.0); NEUTROPHILS # (AUTO) 7.7 K/uL (1.8-8.9); NEUTROPHILS % (AUTO) 79.8 % (43.0-81.0); PLATELET COUNT (AUTO) 114 K/uL (150-450); RED BLOOD CELL COUNT(AUTO) 5.35 MIL/uL (4.0-5.2); WHITE BLOOD COUNT (AUTO) 9.6 K/uL (4.3-11.0)
[2021-08-27 08:15] LABS: POTASSIUM 2.8 mmol/L (3.5-5.1)
[2021-08-27] MEDS: DOCUSATE SODIUM 250 MG CAPSULE PO SCH ×2 (08:19→16:23)
[2021-08-27] MEDS ORDERED: POTASSIUM CHLORIDE 20 MEQ TAB.PRT.SR PO ONE (08:30)
[2021-08-27 08:31] VITALS: BP 115/70
[2021-08-27] MEDS: APIXABAN 5 MG TABLET PO SCH ×2 (09:00→17:23)
--- NOTE | 2021-08-27 09:00 | NUR ---
tele process design chemical engineer: md visit seen and examined by dr. richardson at this time.
[2021-08-27] MEDS: LOPERAMIDE HCL (2 MG CAP) 2 MG CAPSULE PO PRN ×3 (09:34→18:25)
[2021-08-27] MEDS: Z GUARD REMEDY 4 OZ OINT TP SCH (09:34)
[2021-08-27] MEDS ORDERED: ALPR1TAB2 PO (09:38)
[2021-08-27] MEDS ORDERED: OXYC30TA2 PO (09:38)
[2021-08-27] MEDS: DEXAMETHASONE SOD PHOSPHATE 10 MG/ML VIAL IV SCH (09:51)
--- NOTE | 2021-08-27 10:00 | NUR ---
tele manager of data: notes am care rendered with 6 staff assisting. kept clean and dry. good pericare rendered. unable to assess skin due to pt unable to tolerate turning from side to side due to discomfort and pt not willing. kept comfortable. will continue to monitor.
--- NOTE | 2021-08-27 12:00 | NUR ---
tele therapeutic sales specialist: notes lunch served. instructed to call for assistance. no apparent distress noted. will continue to monitor.
[2021-08-27 12:10] VITALS: BP 115/75
--- NOTE | 2021-08-27 15:00 | NUR ---
tele cloth washer back tender: notes pt sounds asleep at this time. no s/s of resp. distress noted. will continue to monitor.
[2021-08-27] MEDS: ONDANSETRON HCL/PF 4 MG/2 ML VIAL IVP PRN ×2 (15:31→22:20)
--- NOTE | 2021-08-27 15:31 | NUR ---
tele roller checker: notes vomited undigested food. zofran 4mg ivp given by rn. will continue to monitor.
--- NOTE | 2021-08-27 16:01 | NUR ---
tele prekindergarten teacher: notes denies n/v at this time. instructed to call for assistance. will continue to monitor.
[2021-08-27 16:12] VITALS: BP 123/69
--- NOTE | 2021-08-27 19:00 | NUR ---
tele restaurant culinary manager: notes report given to isabela (dayana) for continuity of care.
--- NOTE | 2021-08-27 19:00 | NUR ---
COOK LARDER OPENING NOTES: RECEIVED REPORT. ENTERED PATIENT'S ROOM PATIENT AWAKE AND COMMUNICATIVE, VERBALIZING NEEDS EFFECTIVELY. ALERT AND ORIENTED X4. DEMONSTRATES ABILITY TO USE CALL LIGHT AND VERBALIZE NEEDS EFFECTIVELY. CALL LIGHT WITHIN REACH. PATIENT IN NAD AND VSS AT THIS TIME. F/C OBSERVED IN PLACE PATENT AND DRAINING CLEAR REX URINE. R TRIPLE LUMEN PICC FLUSHED WITHOUT COMPLICATION AND NO S/SX OF INFILTRATION OR INFECTION OBSERVED TO OR SURROUNDING INSERTION SITE. DRESSING C/D/I. PATIENT ALSO HAS A R FEMORAL HD CATHETER. BED IN LOW LOCKED POSITION. FREQUENTLY USED ITEMS WITHIN REACH. NC IN PLACE @ 2LPM. LUNG SOUNDS CTA THROUGHOUT. AT END OF ASSESSMENT, PATIENT C/O NAUSEA. NO EMESIS.
[2021-08-27 20:00] VITALS: BP 94/57
[2021-08-27] MEDS: LEVOFLOXACIN (250MG) 250 MG TABLET PO SCH (22:45)
[2021-08-28] VITALS: BP 99/63
--- NOTE | 2021-08-28 00:02 | NUR ---
RT NOTE PATIENT IS AWAKE AND ALERT. PATIENT IS CURRENTLY REFUSING TO BE PLACED ON THE BIPAP. EXPLAINED TO PATIENT THE IMPORTANCE AND BENEFITS OF USING THE BIPAP. PATIENT STILL REFUSING. PRIMARY NURSE NOTIFIED. NO SIGNS OF RESPIRATORY DISTRESS AT THIS TIME. WILL CONTINUE TO MONITOR PATIENT.
[2021-08-28] MEDS: BLOOD SUGAR DIAGNOSTIC 1 EACH STRIP IN SCH ×5 (01:42→23:01)
[2021-08-28] MEDS: INSULIN REGULAR, HUMAN 100 UNIT/ML 3 ML VIAL SQ PRN ×3 (01:42→23:13)
--- NOTE | 2021-08-28 05:48 | NUR ---
TAX ASSESSOR NOTES: PATIENT REFUSING TO BE CHANGED STATING THAT SHE DOESN'T NEED TO BE CHANGED BECAUSE SHE ISN'T WET AND HASN'T HAD A BOWEL MOVEMENT, "I WANT TO DO IT LATER."
[2021-08-28] MEDS: MORPHINE SULFATE SR 15 MG TABLET.SA PO SCH ×3 (06:19→21:04)
[2021-08-28] MEDS: ONDANSETRON HCL/PF 4 MG/2 ML VIAL IVP PRN (06:30)
[2021-08-28] MEDS ORDERED: SUCCINYLCHOLINE CHLORIDE 20 MG/ML VIAL IV ONE (06:50)
[2021-08-28] MEDS ORDERED: ETOMIDATE 2 MG/ML VIAL IV ONE (06:50)
--- NOTE | 2021-08-28 07:00 | NUR ---
PARKING STATION ATTENDANT CLOSING NOTES: PATIENT IN NAD AND VSS AT THIS TIME. NO CHANGE IN PATIENT'S CONDITION. ADMINISTERED ZOFRAN X2 PER PRN ORDER THIS SHIFT FOR C/O NAUSEA. RESULTS EFFECTIVE. BED IN LOW LOCKED POSITION AND HOB ELEVATED TO SEMI VALENTINE'S POSITION. PATIENT DEMONSTRATES ABILITY TO USE CALL LIGHT AND VERBALIZE NEEDS EFFECTIVELY. CALL LIGHT AND FREQUENTLY USED ITEMS WITHIN REACH.
--- NOTE | 2021-08-28 07:38 | NUR ---
MORNING SHOW NEWSCAST PRODUCER OPENING NOTE Patient in bed, awake. A/O x 3, able to make needs known. On O2 at 2 LPM, breathing evenly and unlabored. No SOB or s/s of distress noted. IV access on JENNY PICC, intact and patent. Higginbotham catheter in place, draining to a yellow colored urine. On tele monitoring showing SR, HR on the 70's. Safety precautions in place: bed in low, locked position; siderails up x 2; call light within reach. Will continue to monitor.
[2021-08-28 08:00] VITALS: BP 100/55
[2021-08-28] MEDS ORDERED: POTASSIUM CHLORIDE 20 MEQ TAB.PRT.SR PO ONE (08:00)
[2021-08-28] MEDS: APIXABAN 5 MG TABLET PO SCH ×3 (08:36→17:00)
[2021-08-28] MEDS: DEXAMETHASONE SOD PHOSPHATE 10 MG/ML VIAL IV SCH (08:36)
[2021-08-28] MEDS: DOCUSATE SODIUM 250 MG CAPSULE PO SCH ×2 (08:47→16:07)
[2021-08-28] MEDS: LEVOFLOXACIN (250MG) 250 MG TABLET PO SCH (08:47)
[2021-08-28] MEDS: Z GUARD REMEDY 4 OZ OINT TP SCH (08:49)
[2021-08-28] MEDS ORDERED: APIX5TAB PO (09:33)
[2021-08-28] MEDS ORDERED: LEVO250T59 PO (09:33)
--- NOTE | 2021-08-28 12:00 | NUR ---
RN NOTE Patient's BS is 110, no Insulin coverage needed.
[2021-08-28 16:00] VITALS: BP 117/68
[2021-08-28 17:00] VITALS: BP 100/59
--- NOTE | 2021-08-28 17:02 | NUR ---
RN NOTE Patient refused Eliquis, states it gives her white blotches on the face. Reji, charge nurse, aware.
[2021-08-28] MEDS ORDERED: PRED20TA PO (17:30)
--- NOTE | 2021-08-28 18:27 | NUR ---
RN NOTE Patient's BS is 99, no Insulin coverage needed.
--- NOTE | 2021-08-28 18:50 | NUR ---
ENGINEER OPERATIONS AND MAINTENANCE CLOSING NOTE Patient in bed, resting comfortably. A/O x 3, able to make needs known. On O2 at 2 LPM, breathing evenly and unlabored. No SOB or s/s of distress noted. IV access on JENNY PICC; intact, patent, and flushes well. Higginbotham catheter in place, draining to an cecille colored urine with an output of 1800 cc. Safety precautions maintained: bed in low, locked position; siderails up x 2; call light within reach. Will endorse to overnight associate nurse for SHEREE
--- NOTE | 2021-08-28 19:00 | NUR ---
MS RN OPENING NOTE RECEIVED REPORT, ASSESSED PATIENT. NO CHANGE IN PATIENT'S DISPOSITION FROM PREVIOUS CLOSING ASSESSMENT. PATIENT IN NAD, VSS AT THIS TIME. MENTATION TO BASELINE. DEMONSTRATES ABILITY TO USE CALL LIGHT AND VERBALIZE NEEDS EFFECTIVELY. CALL LIGHT, FLUIDS AND FREQUENTLY USED ITEMS WITHIN REACH.
--- NOTE | 2021-08-28 20:10 | NUR ---
RT NOTE PATIENT REFUSING TO USE BIPAP TONIGHT. PRIMARY NURSE NOTIFIED. EXPLAINED TO PATIENTS BENEFITS AND RISKS BUT PATIENT STILL INSISTS TO NOT USE IT. NO RESPIRATORY DISTRESS AT THIS TIME. WILL CONTINUE TO MONITOR PATIENT.
--- NOTE | 2021-08-28 20:15 | NUR ---
MS RN NOTE: PATIENT REFUSING BiPAP. EDUCATED PATIENT ON THE IMPORTANCE OF BiPAP DEVICE R/T SLEEP APNEA AND THE RISKS ASSOCIATED WITH REFUSAL TO WEAR DEVICE UP TO AND INCLUDING . PATIENT VERBALIZES UNDERSTANDING OF RISKS AND REITERATES REFUSAL.
[2021-08-28 23:34] VITALS: BP 100/59
--- NOTE | 2021-08-29 01:17 | NUR ---
MS RN NOTE: BED CHANGE AND MICHELLE CARE COMPLETED WITH THE HELP OF 3 ADDITIONAL STAFF.
[2021-08-29] MEDS: ONDANSETRON HCL/PF 4 MG/2 ML VIAL IVP PRN (03:24)
[2021-08-29 04:00] VITALS: BP 90/54
[2021-08-29] MEDS: MORPHINE SULFATE SR 15 MG TABLET.SA PO SCH ×3 (04:33→20:40)
[2021-08-29] MEDS: BLOOD SUGAR DIAGNOSTIC 1 EACH STRIP IN SCH ×4 (05:52→23:17)
[2021-08-29] MEDS: INSULIN REGULAR, HUMAN 100 UNIT/ML 3 ML VIAL SQ PRN (05:53)
--- NOTE | 2021-08-29 06:41 | NUR ---
MS RN CLOSING NOTE: PATIENT IN NAD AND VSS THROUGHOUT THE SHIFT. SLEPT INTERMITTENTLY. JENNY TRIPLE LUMEN PICC FLUSHED AND PATENT. NO S/SX OF INFILTRATION OR ERYTHEMA TO OR SURROUNDING CATHETER INSERTION SITE. SOB NOTED WHEN LYING FLAT. NC AT 2LP SPO2 96%. DIMINISHED LUNG SOUNDS NOTED TO BILATERAL BASES. MILES CATHETER PATENT AND DRAINING CLEAR TEA COLORED URINE. GENERALIZED EDEMA 1-2+. PATIENT DEMONSTRATES ABILITY TO USE CALL LIGHT AND VERBALIZE NEEDS EFFECTIVELY. CALL LIGHT AND FREQUENTLY USED ITEMS WITHIN REACH.
[2021-08-29 07:00] LABS: ALBUMIN 2.8 g/dL (3.4-5.0); BILIRUBIN,TOTAL 2.5 mg/dL (0.2-1.0); CALCIUM, SERUM 8.2 mg/dL (8.5-10.1); CREATININE 0.5 mg/dL (0.6-1.3); MAGNESIUM 1.7 mg/dL (1.8-2.4); PHOSPHORUS 3.4 mg/dL (2.5-4.9); POTASSIUM 3.6 mmol/L (3.5-5.1); TOTAL PROTEIN, SERUM 6.5 g/dL (6.4-8.2)
--- NOTE | 2021-08-29 07:30 | NUR ---
PT RECEIVED RESTING COMFORTABLY IN BED. NO S/S OR C/O PAIN OR DISTRESS NOTED. SIDE RAILS UP X2, CALL LIGHT LEFT WITHIN REACH. WILL CONTINUE PLAN OF CARE.
[2021-08-29 08:00] VITALS: BP 102/67
[2021-08-29] MEDS: Z GUARD REMEDY 4 OZ OINT TP SCH (08:24)
[2021-08-29] MEDS: APIXABAN 5 MG TABLET PO SCH (08:24)
[2021-08-29] MEDS: DEXAMETHASONE SOD PHOSPHATE 10 MG/ML VIAL IV SCH (08:24)
[2021-08-29] MEDS: DOCUSATE SODIUM 250 MG CAPSULE PO SCH ×2 (08:24→17:00)
[2021-08-29 08:32] LABS: BASOPHILS % (AUTO) 0.1 % (0.0-2.0); EOSINOPHILS % (AUTO) 0.9 % (0.0-6.0); HEMATOCRIT 40 % (33-45); HEMOGLOBIN 11.7 g/dL (11.5-14.8); LYMPHOCYTES # (AUTO) 1.1 K/uL (0.8-4.8); MEAN CORPUSCULAR HGB CONC 29 g/dl (31.0-36.0); MEAN CORPUSCULAR VOLUME 81 fL (82-100); MONOCYTES # (AUTO) 0.8 K/uL (0.1-1.30); MONOCYTES % (AUTO) 6.6 % (2.0-12.0); NEUTROPHILS # (AUTO) 10.4 K/uL (1.8-8.9); NEUTROPHILS % (AUTO) 83.4 % (43.0-81.0); PLATELET COUNT (AUTO) 117 K/uL (150-450); RED BLOOD CELL COUNT(AUTO) 4.97 MIL/uL (4.0-5.2); WHITE BLOOD COUNT (AUTO) 12.5 K/uL (4.3-11.0)
[2021-08-29] MEDS: ENOXAPARIN SODIUM 40 MG/0.4 ML DISP.SYRIN SQ SCH (11:27)
[2021-08-29 16:00] VITALS: BP 113/67
--- NOTE | 2021-08-29 19:30 | NUR ---
MS RN OPENING NOTE: RECEIVED REPORT. ASSESSED PATIENT. PATIENT IN NAD AND VSS AT THIS TIME. NC IN PLACE AT 2LPM. TRIPLE LUMEN PICC TO R UA FLUSHED AND PATENT. NO S/SX OF INFILTRATION OR ERYTHEMA TO OR SURROUNDING INSERTION SITE. PATIENT ALERT AND ORIENTED TO BASELINE. DEMONSTRATES ABILITY TO USE CALL LIGHT AND VERBALIZE NEEDS EFFECTIVELY. CALL LIGHT AND FREQUENTLY USED ITEMS WITHIN REACH.
--- NOTE | 2021-08-29 19:51 | NUR ---
CHANGE OF SHIFT REPORT PT RESTING COMFORTABLY IN BED. NO S/S OR C/O PAIN OR DISTRESS NOTED. SIDE RAILS UP X2, CALL LIGHT LEFT WITHIN REACH. PT KEPT CLEAN DRY, AND COMFORTABLE. NO SIGNIFICANT CHANGES SINCE PREVIOUS SHIFT. WILL GIVE REPORT TO IRINEO ROCHE.
[2021-08-29 20:00] VITALS: BP 101/59
--- NOTE | 2021-08-29 20:25 | NUR ---
PT REFUSE BIPAP. RISK AND BENEFITS DISCUSSED WITH PT. NO SOB NOTED. PRIMARY NURSE AWARE.
--- NOTE | 2021-08-29 20:30 | NUR ---
MS RN NOTE: PATIENT REFUSING TO WEAR BiPAP DEVICE FOR HS, VERBALIZES UNDERSTANDING OF THE RISKS UP TO AND INCLUDING FOR FAILURE TO WEAR BiPAP DEVICE.
[2021-08-29] MEDS ORDERED: MAGNESIUM OXIDE 400 MG TABLET ONE (20:36)
[2021-08-29] MEDS: LEVOFLOXACIN (250MG) 250 MG TABLET PO SCH (20:40)
[2021-08-29] MEDS: MAGNESIUM OXIDE 400 MG TABLET PO SCH (22:33)
[2021-08-30] MEDS: MORPHINE SULFATE SR 15 MG TABLET.SA PO SCH ×3 (04:36→20:06)
[2021-08-30] MEDS: BLOOD SUGAR DIAGNOSTIC 1 EACH STRIP IN SCH ×4 (06:24→23:55)
--- NOTE | 2021-08-30 06:30 | NUR ---
MS RN CLOSING NOTE: PATIENT IN BED AWAKE WATCHING TV, IN NAD AND VSS AT THIS TIME. PATIENT ALERT AND ORIENTED TO BASELINE. NC IN PLACE AT 2LPM. TRIPLE LUMEN PICC TO R UA FLUSHED AND PATENT. NO S/SX OF INFILTRATION OR ERYTHEMA TO OR SURROUNDING INSERTION SITE. F/C IN PLACE, PATENT AND DRAINING CLEAR, TEA COLORED URINE. 1+ GENERALIZED EDEMA THROUGHOUT. PATIENT DEMONSTRATES ABILITY TO USE CALL LIGHT AND VERBALIZE NEEDS EFFECTIVELY. CALL LIGHT AND FREQUENTLY USED ITEMS WITHIN SEPIDEH
[2021-08-30 06:50] LABS: BASOPHILS % (AUTO) 0.2 % (0.0-2.0); EOSINOPHILS % (AUTO) 1.4 % (0.0-6.0); HEMATOCRIT 39 % (33-45); HEMOGLOBIN 11.8 g/dL (11.5-14.8); LYMPHOCYTES # (AUTO) 1.3 K/uL (0.8-4.8); LYMPHOCYTES % (AUTO) 12.4 % (20.0-44.0); MEAN CORPUSCULAR HGB CONC 30 g/dl (31.0-36.0); MEAN CORPUSCULAR VOLUME 80 fL (82-100); MONOCYTES # (AUTO) 0.8 K/uL (0.1-1.30); NEUTROPHILS # (AUTO) 8.5 K/uL (1.8-8.9); PLATELET COUNT (AUTO) 129 K/uL (150-450); RED BLOOD CELL COUNT(AUTO) 4.85 MIL/uL (4.0-5.2); WHITE BLOOD COUNT (AUTO) 10.7 K/uL (4.3-11.0)
[2021-08-30 08:00] VITALS: BP 126/80
--- NOTE | 2021-08-30 08:22 | NUR ---
m/s bed manager: md visit seen by dr. richardson at this time and updated plan of care. pt for dc planning, awaiting placement. pt aware.
[2021-08-30 08:27] LABS: CALCIUM, SERUM 8.4 mg/dL (8.5-10.1); CREATININE 0.5 mg/dL (0.6-1.3); MAGNESIUM 2.2 mg/dL (1.8-2.4); PHOSPHORUS 3.7 mg/dL (2.5-4.9); POTASSIUM 3.8 mmol/L (3.5-5.1)
[2021-08-30] MEDS: DOCUSATE SODIUM 250 MG CAPSULE PO SCH ×2 (08:54→17:00)
[2021-08-30] MEDS: Z GUARD REMEDY 4 OZ OINT TP SCH (08:54)
[2021-08-30] MEDS: ENOXAPARIN SODIUM 40 MG/0.4 ML DISP.SYRIN SQ SCH (09:28)
--- NOTE | 2021-08-30 10:00 | NUR ---
m/s html developer: notes pt refused am care. instructed to call for assistance.
[2021-08-30 16:00] VITALS: BP 107/60
--- NOTE | 2021-08-30 17:30 | NUR ---
m/s clinical trials assistant: notes about go give pm care, but pt wants to wait a little more. instructed to call for assistance. will continue to monitor.
--- NOTE | 2021-08-30 18:25 | NUR ---
m/s gas golf cart repairer: notes pt refused pm care when offered x 3. needs attended. instructed to call for assistance. will continue to monitor.
--- NOTE | 2021-08-30 19:00 | NUR ---
m/s dairy equipment mechanic: notes report given to jessenia (dayana) for continuity of care.
--- NOTE | 2021-08-30 19:43 | NUR ---
PT REFUSING BIPAP TONIGHT. SAYS SHE IS COMFORTABLE WITH NO SOB NOTED. RN AWARE. WILL CONT TO MONITOR.
[2021-08-30 20:00] VITALS: BP 109/58
--- NOTE | 2021-08-30 20:30 | NUR ---
RN SHEREE NOTE PATIENT RECEIVED FROM RM ROCHE. PATIENT STABLE, MORPHINE SULFATE ALREADY GIVEN. PATIENT NOT IN ANY APPARENT DISTRESS NC 2LPM ON. PATIENT HAS MILES CATHETER IN, DRAINING WELL VIA GRAVITY. PATIENT HAS A JENNY PICC LINE PATENT AND INTACT, R FEMORAL HD CATH PRESENT. SAFETY MEASURES IN PLACE: BED LOCKED AND IN LOWEST POSITION, CALL LIGHT WITHIN REACH, SIDE RAILS UP. WILL MONITOR PATIENT CLOSELY.
[2021-08-30] MEDS: LEVOFLOXACIN (250MG) 250 MG TABLET PO SCH ×2 (21:00→21:22)
[2021-08-30] MEDS: MAGNESIUM OXIDE 400 MG TABLET PO SCH ×2 (21:22→21:27)
[2021-08-31] VITALS: BP 101/60
--- NOTE | 2021-08-31 | NUR ---
RN NOTE BS 79 MG/DL. JUICE AND SNACKS GIVEN, WILL RE-ASSESS AT A LATER TIME. WILL MONITOR FOR HYPOGLYCEMIA.
[2021-08-31] MEDS ORDERED: oxyCODONE HCL SR 20MG TAB.SR.12H PO SCH (01:00)
--- NOTE | 2021-08-31 01:30 | NUR ---
RN NOTE BS 83 MG DL, SLOWLY RISING. PATIENT GIVEN TEA WITH SUGAR. WILL CONTINUE TO MONITOR PATIENT.
[2021-08-31] MEDS: oxyCODONE IR immediate release 5 MG PO SCH ×4 (01:38→20:11)
--- NOTE | 2021-08-31 01:45 | NUR ---
RN NOTE PATIENT GIVEN OXYCODONE FOR PAIN, WILL REASSESS MED EFFECTIVENESS AT A LATER TIME
--- NOTE | 2021-08-31 03:49 | NUR ---
PATIENT COMPLAINING OF SEVERE PAIN, ASKED FOR HER HOME MED OXYCODONE. OBTAINED TRBO FROM [facility] FOR OXYCODONE 30 MG Q6HR. PATIENT ALSO ASKING FOR XANAX 1 MG. ORDER GIVEN. Addendum: 08/31/21 at 0353 by ISREAL CULVER RN TIME
[2021-08-31] MEDS: BLOOD SUGAR DIAGNOSTIC 1 EACH STRIP IN SCH ×3 (05:25→17:56)
[2021-08-31] MEDS: MORPHINE SULFATE SR 15 MG TABLET.SA PO SCH ×4 (05:25→21:00)
--- NOTE | 2021-08-31 06:53 | NUR ---
RN CLOSING NOTE PATIENT IN BED AWAKE, NO COMPLAINS OF PAIN AT THIS TIME. PATIENT IS ON RA 99% O2 SAT. PATIENT STABLE THROUGHOUT THE SHIFT. PAIN MANAGED WITH MORPHINE AND OXYCODONE SCHEDULED. SAFETY MEASURES IMPLEMENTED. ALL NEEDS MET AND ATTENDED. ALL ORDERS CARRIED OUT. WILL ENDORSE TO DAY SHIFT NURSE FOR SHEREE. BS 104 MG/DL, NO COVERAGE GIVEN. PATIENT CONTINUES TO REFUSE TURNING D/T PAIN AND UNABLE TO TOLERATE ACTIVITY.
--- NOTE | 2021-08-31 07:19 | NUR ---
MS RN OPENING NOTE RECEIVED PATIENT ON BED, ALERT/ORIENTED X 4. PT ABLE TO MAKE NEEDS KNOWN. PATIENT DENIES NAUSEA OR PAIN AT THIS TIME, NO SIGNS OF DISTRESS NOTED. PT STABLE ON ROOM AIR, WITH EQUAL AND UNLABORED BREATHING. WITH RIGHT UPPER ARM PICC LINE, ON SALINE LOCK, PATENT AND INTACT. WITH RIGHT FEMORAL CATHETER FOR HD, WITH DRESSING DRY AND INTACT. WITH MILES CATHETER TO URINE BAG, WITH YELLOWISH URINE OUTPUT DRAINING WELL. SAFETY MEASURES ENSURED WITH CALL LIGHT WITHIN REACH, SIDE RAILS UP X 2, BED LOCKED IN LOW POSITION. WILL CONTINUE TO MONITOR PATIENT
[2021-08-31 08:00] VITALS: BP 111/56
--- NOTE | 2021-08-31 08:30 | NUR ---
MS RN NOTE PATIENT SEEN BY DR. CARRILLO. WILL CONTINUE TO MONITOR PATIENT.
[2021-08-31] MEDS: CALCIUM CARBONATE (1250) 500 MG TABLET PO SCH (08:58)
[2021-08-31] MEDS: ALPRAZOLAM 1 MG TABLET PO SCH ×2 (08:58→17:30)
[2021-08-31] MEDS ORDERED: ALPRAZOLAM 1 MG TABLET PO SCH (09:00)
[2021-08-31] MEDS: Z GUARD REMEDY 4 OZ OINT TP SCH (09:00)
[2021-08-31] MEDS: DOCUSATE SODIUM 250 MG CAPSULE PO SCH ×2 (09:00→17:00)
[2021-08-31] MEDS: ENOXAPARIN SODIUM 40 MG/0.4 ML DISP.SYRIN SQ SCH (11:06)
[2021-08-31] MEDS: ACETAMINOPHEN 325 MG TABLET PO PRN ×2 (14:49→20:23)
[2021-08-31 16:00] VITALS: BP 104/58
[2021-08-31] MEDS: LOPERAMIDE HCL (2 MG CAP) 2 MG CAPSULE PO PRN (17:36)
--- NOTE | 2021-08-31 18:40 | NUR ---
MS RN CLOSING NOTE PATIENT ON BED, ALERT/ORIENTED X 4. PT ABLE TO MAKE NEEDS KNOWN. PT STABLE ON ROOM AIR, WITH EQUAL AND UNLABORED BREATHING. WITH RIGHT UPPER ARM PICC LINE, ON SALINE LOCK, PATENT AND INTACT. WITH RIGHT FEMORAL CATHETER FOR HD, WITH DRESSING DRY AND INTACT. WITH MILES CATHETER TO URINE BAG, WITH YELLOWISH URINE OUTPUT DRAINING WELL. SAFETY MEASURES ENSURED WITH CALL LIGHT WITHIN REACH, SIDE RAILS UP X 2, BED LOCKED IN LOW POSITION. WILL ENDORSE PATIENT FOR CONTINUITY OF CARE.
--- NOTE | 2021-08-31 19:30 | NUR ---
RN OPENING NOTE PATIENT IN BED AWAKE, PATIENT COMPLAINING OF PAIN, HAS SCHEDULED OXYCODONE AT 1999, PATIENT IS ON RA TOLERATING WELL, NO SIGNS OF RESPIRATORY DISTRESS. PATIENT HAS MILES CATHETER IN PLACE WITH REX COLORED URINE DRAINING. PATIENT ON A BARIATRIC BED. SAFETY MEASURES IN PLACE: BED LOCKED AND IN LOWEST POSITION, CALL LIGHT WITHIN REACH, SIDE RAILS UP. WILL MONITOR PATIENT CLOSELY.
[2021-08-31 20:00] VITALS: BP 101/60
[2021-08-31] MEDS: LEVOFLOXACIN (250MG) 250 MG TABLET PO SCH (21:00)
--- NOTE | 2021-08-31 21:30 | NUR ---
PT REFUSED BIPAP, MELCHOR BENITO NOTIFIED . NO RESPIRATORY DISTRESS NOTED AT THIS TIME. SPO2 97%. WILL CONTINUE TO MONITOR PT T/O SHIFT.
[2021-08-31] MEDS: MAGNESIUM OXIDE 400 MG TABLET PO SCH ×2 (21:32→21:41)
--- NOTE | 2021-08-31 21:42 | NUR ---
PATIENT REFUSED MAG OXIDE AND LEVAQUIN. STATES THAT "IF I DON'T NEED IT, I DON'T NEED TO TAKE IT". EDUCATED PATIENT ON PLAN OF CARE, STILL REFUSES. REFUSES MORPHINE SULFATE AT THIS TIME WELL.
--- NOTE | 2021-09-01 | NUR ---
BS 84 MG/DL. BROUGHT PATIENT SNACKS AND JUICE BUT REFUSED THEM. PATIENT STATES THAT SHE JUST WANTS TO GO TO SLEEP AND THAT SHE DOES NOT WANT TO DRIN OR EAT ANYTHING. "MY BS IS GOOD". EDUCATED PATIENT REGARDING HYPOGLYCEMIA. STILL REFUSES SNACKS/JUICE TO BA MALONE BS. WILL MONITOR FOR S/S OF HYPOGLYCEMIA.
[2021-09-01] MEDS: BLOOD SUGAR DIAGNOSTIC 1 EACH STRIP IN SCH ×4 (00:06→17:52)
[2021-09-01] MEDS: oxyCODONE IR immediate release 5 MG PO SCH ×4 (02:46→19:48)
[2021-09-01] MEDS: ACETAMINOPHEN 325 MG TABLET PO PRN ×4 (02:46→19:48)
[2021-09-01] MEDS: LOPERAMIDE HCL (2 MG CAP) 2 MG CAPSULE PO PRN (03:14)
[2021-09-01] MEDS: MORPHINE SULFATE SR 15 MG TABLET.SA PO SCH ×4 (05:28→21:20)
--- NOTE | 2021-09-01 05:56 | NUR ---
BS 109 MG/DL. NO COVERAGE GIVEN. WILL MONITOR PATIENT FOR HYPOGLYCEMIA. SNACKS AT BEDISDE.
--- NOTE | 2021-09-01 07:30 | NUR ---
MS RN OPENING NOTES RECEIVED PT AWAKE IN BED. ALERT AND ORIENTED X4. NO S/SX OF DISTRESS NOTED. NO SOB. BREATHING EVEN AND UNLABORED, TOLERATING WELL ON ROOM AIR. IV ACCESS ON JENNY PICC LINE INTACT AND PATENT SAFETY MEASURE IN PLACE WITH BED LOCKED AND IN LOWEST POSITION, SR UP X2, CALL LIGHT PLACED WITHIN EASY REACH. WILL CONTINUE TO MONITOR PT FOR CHANGES IN CONDITION.
--- NOTE | 2021-09-01 07:33 | NUR ---
RN CLOSING NOTE ENDORSED TO DAY SHIFT NURSE FOR SHEREE. NO SIGNIFICANT CHANGES ON CONDITION.
[2021-09-01 08:00] VITALS: BP 101/55
[2021-09-01] MEDS: CALCIUM CARBONATE (1250) 500 MG TABLET PO SCH (08:42)
[2021-09-01] MEDS: DOCUSATE SODIUM 250 MG CAPSULE PO SCH ×2 (08:42→17:51)
[2021-09-01] MEDS: ALPRAZOLAM 1 MG TABLET PO SCH ×3 (08:43→17:00)
[2021-09-01] MEDS: Z GUARD REMEDY 4 OZ OINT TP SCH (08:43)
--- NOTE | 2021-09-01 09:00 | NUR ---
RN NOTES PT REQUESTED TO HOLD XANAX 1MG PO UNTIL 1000.
[2021-09-01] MEDS: ENOXAPARIN SODIUM 40 MG/0.4 ML DISP.SYRIN SQ SCH (10:00)
--- NOTE | 2021-09-01 11:42 | NUR ---
RN NOTES PT REFUSED BS CHECK FOR 1200. MD AND CHARGE NURSE MADE AWARE.
[2021-09-01 16:00] VITALS: BP 97/64
--- NOTE | 2021-09-01 19:05 | NUR ---
MS RN CLOSING NOTES PATIENT REMAINS IN BED, A/O X4; ABLE TO MAKE NEEDS KNOWN. NO SOB NOTED. NO COMPLAINS OF PAIN. JENNY PICC IN PLACE. MILES CATH PRESENT WITH 500 MLS OUTPUT. SAFETY PRECAUTIONS IN PLACE; BED IN LOW POSITION AND LOCKED, RAILS UP X2, CALL LIGHT WITHIN REACH. ALL NEEDS MET THROUGHOUT SHIFT WILL ENDORSE TO [employer] OPERATIONS NURSE.
--- NOTE | 2021-09-01 19:10 | NUR ---
MS/RN OPENING NOTE RECEIVED PATIENT RESTING IN BED. AWAKE, ALERT AND ORIENTED X 4. ABLE TO MAKE NEEDS KNOWN. DENIES PAIN AT THIS TIME. CONTINUES ON ROOM AIR WITH NO S/SX OF RESPIRATORY DISTRESS NOTED. IV ACCESS TO RIGHT UPPER ARM PICC LINE INTACT, PATENT AND SALINE LOCKED. MILES CATHETER IN PLACE DRAINING CLEAR, YELLOW URINE TO GRAVITY. CALL LIGHT WITHIN REACH. ASPIRATION, FALL AND SAFETY PRECAUTIONS MAINTAINED. WILL CONTINUE TO MONITOR.
[2021-09-01 20:34] VITALS: BP 92/50
[2021-09-01] MEDS: LEVOFLOXACIN (250MG) 250 MG TABLET PO SCH (21:00)
[2021-09-01] MEDS: MAGNESIUM OXIDE 400 MG TABLET PO SCH (21:21)
--- NOTE | 2021-09-01 22:00 | NUR ---
MS/RN NOTE SPOKE WITH PATIENT LAST NIGHT REGARDING ADL CARE. PATIENT AGREED TO HAVE ADL CARE PERFORMED @ 0600.
--- NOTE | 2021-09-02 00:20 | NUR ---
RT pt refused noc bipap. dayana mejia, notified. no sob, no resp distress noted.
[2021-09-02] MEDS: oxyCODONE IR immediate release 5 MG PO SCH ×4 (02:02→20:00)
[2021-09-02] MEDS: MORPHINE SULFATE SR 15 MG TABLET.SA PO SCH ×3 (05:35→22:07)
[2021-09-02] MEDS: LOPERAMIDE HCL (2 MG CAP) 2 MG CAPSULE PO PRN ×2 (05:39→19:50)
[2021-09-02] MEDS: BLOOD SUGAR DIAGNOSTIC 1 EACH STRIP IN SCH ×5 (05:48→23:58)
--- NOTE | 2021-09-02 06:10 | NUR ---
MS/RN CLOSING NOTE PATIENT CURRENTLY RESTING IN BED. AWAKE, ALERT AND ORIENTED X 4. ABLE TO MAKE NEEDS KNOWN. DENIES PAIN AT THIS TIME. CONTINUES ON ROOM AIR WITH NO S/SX OF RESPIRATORY DISTRESS NOTED. IV ACCESS TO RIGHT UPPER ARM PICC LINE INTACT, PATENT AND SALINE LOCKED. MILES CATHETER IN PLACE DRAINING CLEAR, YELLOW URINE TO GRAVITY. PATIENT REFUSED ALL BLOOD SUGAR CHECKS THIS SHIFT. STATES SHE IS NOT A DIABETIC AND DOESN'T NEED HER SURGAR CHECKED. MD AWARE. CALL LIGHT WITHIN REACH. ASPIRATION, FALL AND SAFETY PRECAUTIONS MAINTAINED. WILL ENDORSE PLAN OF CARE TO ONCOMING SHIFT.
--- NOTE | 2021-09-02 06:10 | NUR ---
MS/RN NOTE PATIENT REFUSING TO CHANGE SHEETS OR PERFORM ADL CARE THIS AM. EXPLAINED RISK/BENEFITS WITH PATIENT CONTINUING TO REFUSE. WILL CONTINUE TO MONITOR.
--- NOTE | 2021-09-02 07:03 | NUR ---
MS/RN NOTE PATIENT REFUSED CHEST XRAY THIS AM. WILL ENDORSE TO AM SHIFT.
--- NOTE | 2021-09-02 07:20 | NUR ---
MS RN OPENING NOTES RECEIVED PATIENT IN BED, AWAKE, VERBALLY RESPONSIVE, NO SIGNS OF ACUTE DISTRESS. ON ROOM AIR, TOLERATING WELL. NO SOB NOTED. NO SIGNS OF PAIN OR DISCOMFORT NOTED. JENNY PICC LINE, INTACT AND PATENT, SL. F/C INTACT DRAINING TEA COLORED URINE. SAFETY MEASURES MAINTAINED. CALL LIGHT PLACED WITHIN EASY REACH. WILL CONTINUE TO MONITOR.
[2021-09-02 08:00] VITALS: BP 130/53
[2021-09-02] MEDS: DOCUSATE SODIUM 250 MG CAPSULE PO SCH ×2 (08:12→17:00)
[2021-09-02] MEDS: ACETAMINOPHEN 325 MG TABLET PO PRN (08:17)
[2021-09-02] MEDS: Z GUARD REMEDY 4 OZ OINT TP SCH (08:23)
[2021-09-02] MEDS: CALCIUM CARBONATE (1250) 500 MG TABLET PO SCH (09:14)
[2021-09-02] MEDS: ALPRAZOLAM 1 MG TABLET PO SCH ×2 (09:14→17:04)
[2021-09-02] MEDS: ENOXAPARIN SODIUM 40 MG/0.4 ML DISP.SYRIN SQ SCH (10:00)
--- NOTE | 2021-09-02 11:54 | NUR ---
RN NOTES PATIENT REFUSED ACCUCHECK.
[2021-09-02 16:00] VITALS: BP 106/54
--- NOTE | 2021-09-02 17:04 | NUR ---
RN NOTES PATIENT REFUSED ACCUCHECK, IN SPITE EXPLANATION OF IMPORTANCE, PER PATIENT SHE IS NOT DIABETIC. NO S/SX OF HYPO/HYPERGLYCEMIA NOTED.
--- NOTE | 2021-09-02 19:00 | NUR ---
MS RN CLOSING NOTES PATIENT ON BED, AWAKE, VERBALLY RESPONSIVE, NO SIGNS OF ACUTE DISTRESS. REMAINS ON ROOM AIR, TOLERATING WELL. NO SOB NOTED. NO SIGNS OF PAIN OR DISCOMFORT NOTED. JENNY PICC LINE, INTACT AND PATENT, SL. F/C INTACT DRAINED 300CC TEA COLORED URINE. PT REFUSED BLOOD SUGAR CHECKS, PER PT SHE IS NOT DIABETIC. SAFETY MEASURES MAINTAINED. CALL LIGHT PLACED WITHIN EASY REACH. ENDORSED TO NEXT SHIFT.
[2021-09-02 19:30] VITALS: BP 96/48
--- NOTE | 2021-09-02 19:52 | NUR ---
MS RN NOTES PRN LOPERAMIDE GIVEN PER PT REQUEST TOLERATED WELL WILL CONTINUE TO MONITOR.
--- NOTE | 2021-09-02 20:00 | NUR ---
MS RN NOTES OXY HELD DUE TO PTS LOW BP. WILL CONTINUE TO MONITOR.
[2021-09-02] MEDS: MAGNESIUM OXIDE 400 MG TABLET PO SCH ×2 (22:00→22:06)
[2021-09-02 22:13] VITALS: BP 103/54
--- NOTE | 2021-09-02 23:58 | NUR ---
MS RN NOTES PT REFUSED AQ CHECK X3 RISK AND BENEFITS EXPLAINED X3 PT STILL REFUSED PT STATED " I AM NOT DIABETIC I DON'T UNDERSTAND WHY YOU KEEP INSISTING TO CHECK". WILL CONTINUE TO MONITOR.
[2021-09-03] MEDS: oxyCODONE IR immediate release 5 MG PO SCH ×4 (01:49→20:19)
[2021-09-03] MEDS: ACETAMINOPHEN 325 MG TABLET PO PRN ×3 (01:53→20:20)
[2021-09-03] MEDS: MORPHINE SULFATE SR 15 MG TABLET.SA PO SCH ×4 (05:05→22:27)
[2021-09-03] MEDS: BLOOD SUGAR DIAGNOSTIC 1 EACH STRIP IN SCH ×3 (05:47→18:00)
--- NOTE | 2021-09-03 05:47 | NUR ---
MS RN NOTES PT REFUSED AQ CHECK AGAIN RISK AND BENEFITS EXPLAINED X3 PT REFUSED X3 STATED " I DONT KNOW HOW MANY TIMES I HAVE TO TELL YOU PEOPLE I AM NOT DIABETIC". WILL CONTINUE TO MONITOR.
[2021-09-03 06:36] LABS: BASOPHILS # (AUTO) 0.1 K/uL (0.0-0.2); BASOPHILS % (AUTO) 0.7 % (0.0-2.0); EOSINOPHILS % (AUTO) 1.3 % (0.0-6.0); HEMATOCRIT 39 % (33-45); HEMOGLOBIN 11.5 g/dL (11.5-14.8); LYMPHOCYTES # (AUTO) 1.4 K/uL (0.8-4.8); LYMPHOCYTES % (AUTO) 14.4 % (20.0-44.0); MEAN CORPUSCULAR HGB CONC 29 g/dl (31.0-36.0); MEAN CORPUSCULAR VOLUME 82 fL (82-100); MONOCYTES # (AUTO) 0.5 K/uL (0.1-1.30); MONOCYTES % (AUTO) 5.3 % (2.0-12.0); NEUTROPHILS # (AUTO) 7.7 K/uL (1.8-8.9); NEUTROPHILS % (AUTO) 78.3 % (43.0-81.0); PLATELET COUNT (AUTO) 147 K/uL (150-450); RED BLOOD CELL COUNT(AUTO) 4.77 MIL/uL (4.0-5.2); WHITE BLOOD COUNT (AUTO) 9.9 K/uL (4.3-11.0)
--- NOTE | 2021-09-03 06:41 | NUR ---
MS RN CLOSING NOTES RECEIVED PATIENT IN BED, AWAKE, VERBALLY RESPONSIVE, NO SIGNS OF ACUTE DISTRESS. ON ROOM AIR, TOLERATING WELL. NO SOB NOTED. NO SIGNS OF PAIN OR DISCOMFORT NOTED. JENNY PICC LINE, INTACT AND PATENT, SL. F/C INTACT DRAINING TEA COLORED URINE. SAFETY MEASURES MAINTAINED. CALL LIGHT PLACED WITHIN EASY REACH. ALL NEEDS ATTENDED TO THROUGHOUT THE SHIFT. WILL ENDORSE CARE TO DAY SHIFT NURSE.
[2021-09-03 06:45] LABS: CALCIUM, SERUM 8.1 mg/dL (8.5-10.1); CREATININE 0.5 mg/dL (0.6-1.3); POTASSIUM 3.8 mmol/L (3.5-5.1)
[2021-09-03 08:00] VITALS: BP 102/59
[2021-09-03] MEDS: ALPRAZOLAM 1 MG TABLET PO SCH ×2 (09:52→18:07)
[2021-09-03] MEDS: Z GUARD REMEDY 4 OZ OINT TP SCH (10:05)
[2021-09-03] MEDS: CALCIUM CARBONATE (1250) 500 MG TABLET PO SCH (10:29)
[2021-09-03] MEDS: DOCUSATE SODIUM 250 MG CAPSULE PO SCH ×2 (11:21→17:00)
[2021-09-03] MEDS: HEPARIN SODIUM, PORCINE 5000 UNITS/1 ML VIAL SQ SCH ×2 (11:26→20:20)
--- NOTE | 2021-09-03 11:44 | NUR ---
RN NOTES PATIENT REFUSED BLOOD SUGAR CHECK FOR 1200 . EDUCATE THE PATIENT BUT STILL REFUSING.
--- NOTE | 2021-09-03 11:46 | NUR ---
RN NOTES PATIENT REFUSED ENOXAPARIN FOR 1000 AM. STATES SHE HAS ALLERGY TO MEDICATION. RECEIVED NEW ORDER OF HEPARIN [address] CARRILLO.
--- NOTE | 2021-09-03 18:30 | NUR ---
MS RN CLOSING NOTES PATIENT IN BED, AWAKE.ALERT AND ORIENTED TIMES 4. VERBALLY RESPONSIVE. NO SIGNS OF ACUTE DISTRESS. ON ROOM AIR, TOLERATING WELL. NO SOB NOTED. NO RESPIRATORY DISTRESS NOTED.NO SIGNS OF PAIN OR DISCOMFORT NOTED. DUE MEDS GIVEN ORDERED. JENNY PICC LINE, INTACT AND PATENT, SL. F/C INTACT . SAFETY MEASURES MAINTAINED. CALL LIGHT AND TABLE WITHIN REACH. WILL ENDORSE INCOMING SHIFT FOR SHEREE.
--- NOTE | 2021-09-03 19:12 | NUR ---
MS RN OPENING NOTES RECEIVED PATIENT IN BED, AWAKE.ALERT AND ORIENTED X4. VERBALLY RESPONSIVE. NO SIGNS OF ACUTE DISTRESS. ON ROOM AIR, TOLERATING WELL. NO SOB NOTED. NO RESPIRATORY DISTRESS NOTED.NO SIGNS OF PAIN OR DISCOMFORT NOTED. JENNY PICC LINE, INTACT AND PATENT, SL. F/C INTACT . SAFETY MEASURES MAINTAINED. CALL LIGHT AND TABLE WITHIN REACH. WILL CONTINUE TO MONITOR
[2021-09-03 20:00] VITALS: BP 95/58
[2021-09-03] MEDS: MAGNESIUM OXIDE 400 MG TABLET PO SCH (22:00)
[2021-09-04] MEDS: oxyCODONE IR immediate release 5 MG PO SCH ×4 (01:59→20:07)
[2021-09-04] MEDS: BLOOD SUGAR DIAGNOSTIC 1 EACH STRIP IN SCH ×4 (05:06→18:00)
[2021-09-04] MEDS: MORPHINE SULFATE SR 15 MG TABLET.SA PO SCH ×3 (05:10→21:03)
--- NOTE | 2021-09-04 06:46 | NUR ---
MS RN CLOSING NOTES PATIENT IN BED, AWAKE.ALERT AND ORIENTED X4. VERBALLY RESPONSIVE. NO SIGNS OF ACUTE DISTRESS. ON ROOM AIR, TOLERATING WELL. NO SOB NOTED. NO RESPIRATORY DISTRESS NOTED.NO SIGNS OF PAIN OR DISCOMFORT NOTED. JENNY PICC LINE, INTACT AND PATENT, SL. F/C INTACT WITH YELLOW URINE. PT DID REFUSE AQ CHECKS TONIGHT RISK AND BENEFITS EXPLAINED X3 PT STATED " I AM NOT DIABETIC" SAFETY MEASURES MAINTAINED. CALL LIGHT AND TABLE WITHIN REACH. WILL ENDORSE TO DAY SHIFT NURSE.
--- NOTE | 2021-09-04 07:30 | NUR ---
MS RN OPENING NOTES RECEIVED PATIENT IN BED, AWAKE.ALERT AND ORIENTED TIMES 4. VERBALLY RESPONSIVE. NO SIGNS OF ACUTE DISTRESS. ON ROOM AIR, TOLERATING WELL. NO SOB NOTED. NO RESPIRATORY DISTRESS NOTED.NO SIGNS OF PAIN OR DISCOMFORT NOTED. JENNY PICC LINE, INTACT AND PATENT, SL. F/C INTACT . SAFETY MEASURES MAINTAINED. CALL LIGHT AND TABLE WITHIN REACH. WILL CONTINUE TO MONITOR.
--- NOTE | 2021-09-04 07:30 | NUR ---
MS RN CLOSING NOTES PATIENT IN BED, AWAKE.ALERT AND ORIENTED TIMES 4. VERBALLY RESPONSIVE. NO SIGNS OF ACUTE DISTRESS. ON ROOM AIR, TOLERATING WELL. NO SOB NOTED. NO RESPIRATORY DISTRESS NOTED.NO SIGNS OF PAIN OR DISCOMFORT NOTED. DUE MEDS GIVEN ORDERED. JENNY PICC LINE, INTACT AND PATENT, SL. F/C INTACT . SAFETY MEASURES MAINTAINED.PATINT REFUSED COLACE , MORPHINE AND ACCU CHECKS. CALL LIGHT AND TABLE WITHIN REACH. WILL ENDORSE INCOMING SHIFT FOR SHEREE.
[2021-09-04 08:00] VITALS: BP 103/58
[2021-09-04] MEDS: ACETAMINOPHEN 325 MG TABLET PO PRN (08:43)
[2021-09-04] MEDS: DOCUSATE SODIUM 250 MG CAPSULE PO SCH ×2 (09:00→17:00)
[2021-09-04] MEDS: CALCIUM CARBONATE (1250) 500 MG TABLET PO SCH (09:39)
[2021-09-04] MEDS: Z GUARD REMEDY 4 OZ OINT TP SCH (09:39)
[2021-09-04] MEDS: HEPARIN SODIUM, PORCINE 5000 UNITS/1 ML VIAL SQ SCH ×2 (09:40→21:06)
[2021-09-04] MEDS: ALPRAZOLAM 1 MG TABLET PO SCH ×2 (09:56→18:20)
[2021-09-04 16:00] VITALS: BP 100/58
--- NOTE | 2021-09-04 19:41 | NUR ---
RN OPENING NOTES RECEIVED PT IN BED, AWAKE. AOx4, ABLE TO MAKE NEEDS KNOWN. ON RA AND TOLERATING WELL. NO SOB NOTED. NO S/SX OF RESPIRATORY DISTRESS NOTED. IV ACCESS IN JENNY PICC LINE. IV IS INTACT, PATENT, AND FLUSHING WELL. SAFETY PRECAUTIONS IN PLACE: BED IN LOWEST, LOCKED POSITION, SIDERAILS UPx2, AND BRAKES ON. TABLE AND CALL LIGHT WITHIN REACH. WILL CONTINUE TO MONITOR.
[2021-09-04 20:00] VITALS: BP 101/51
--- NOTE | 2021-09-04 20:07 | NUR ---
ADMINISTERED OXYCODONE PER MD ORDER. VS WNL. WILL CONTINUE TO MONITOR.
[2021-09-04] MEDS: MAGNESIUM OXIDE 400 MG TABLET PO SCH (21:03)
[2021-09-05] MEDS: oxyCODONE IR immediate release 5 MG PO SCH ×4 (01:07→19:47)
--- NOTE | 2021-09-05 01:07 | NUR ---
ADMINISTERED OXYCODONE PER MD ORDER. VS WNL. WILL CONTINUE TO MONITOR.
[2021-09-05] MEDS: ACETAMINOPHEN 325 MG TABLET PO PRN ×2 (03:11→14:59)
[2021-09-05] MEDS: BLOOD SUGAR DIAGNOSTIC 1 EACH STRIP IN SCH ×5 (05:39→23:08)
[2021-09-05] MEDS: MORPHINE SULFATE SR 15 MG TABLET.SA PO SCH ×3 (06:16→21:18)
--- NOTE | 2021-09-05 06:16 | NUR ---
ADMINISTERED MORPHINE PER MD ORDER. VS WNL. WILL CONTINUE TO MONITOR.
--- NOTE | 2021-09-05 06:42 | NUR ---
RN CLOSING NOTES PT IN BED, AWAKE. AOx4, ABLE TO MAKE NEEDS KNOWN. ON RA AND TOLERATING WELL. NO SOB NOTED. NO S/SX OF RESPIRATORY DISTRESS NOTED. IV ACCESS IN JENNY PICC LINE. IV IS INTACT, PATENT, AND FLUSHING WELL. ALL NEEDS MET. PT KEPT CLEAN AND DRY. SAFETY PRECAUTIONS IN PLACE: BED IN LOWEST, LOCKED POSITION, SIDERAILS UPx2, AND BRAKES ON. TABLE AND CALL LIGHT WITHIN REACH. WILL ENDORSE TO ONCOMING SHIFT FOR SHEREE.
--- NOTE | 2021-09-05 07:21 | NUR ---
RN OPENING NOTE- PT IN BED, AWAKE. AOx4, ABLE TO MAKE NEEDS KNOWN. ON RA AND TOLERATING WELL. NO SOB NOTED. NO S/SX OF RESPIRATORY DISTRESS NOTED. IV ACCESS IN JENNY PICC LINE. ALL NEEDS MET. PT KEPT CLEAN AND DRY. SAFETY PRECAUTIONS IN PLACE: BED IN LOWEST, LOCKED POSITION, SIDERAILS UPx2, AND BRAKES ON. TABLE AND CALL LIGHT WITHIN REACH. BROUGHT EXTRA BLANKETS / MADE COMFORTABLE./. MONITOR / ASSIST.
[2021-09-05 08:00] VITALS: BP 99/53
[2021-09-05] MEDS: DOCUSATE SODIUM 250 MG CAPSULE PO SCH ×2 (08:43→17:00)
[2021-09-05] MEDS: Z GUARD REMEDY 4 OZ OINT TP SCH (08:43)
[2021-09-05] MEDS: CALCIUM CARBONATE (1250) 500 MG TABLET PO SCH (08:43)
[2021-09-05] MEDS: HEPARIN SODIUM, PORCINE 5000 UNITS/1 ML VIAL SQ SCH ×2 (08:43→21:20)
[2021-09-05] MEDS: ALPRAZOLAM 1 MG TABLET PO SCH ×2 (08:43→17:08)
--- NOTE | 2021-09-05 14:59 | NUR ---
RN NOTE- C/O HEADACHE. TYLENOL 650 MG ADMINISTERED
[2021-09-05 16:00] VITALS: BP 106/64
--- NOTE | 2021-09-05 18:39 | NUR ---
RN CLOSING NOTE-PT IN BED, AWAKE. AOx4, ABLE TO MAKE NEEDS KNOWN. ON RA AND TOLERATING WELL. NO SOB NOTED. NO S/SX OF RESPIRATORY DISTRESS NOTED. COMFORTABLE AT PRESENT. IV ACCESS IN JENNY PICC LINE. ALL NEEDS MET. PT KEPT CLEAN AND DRY. SAFETY PRECAUTIONS IN PLACE: BED IN LOWEST, LOCKED POSITION, SIDERAILS UPx2, AND BRAKES ON. TABLE AND CALL LIGHT WITHIN REACH. MONITOR / ASSIST.
--- NOTE | 2021-09-05 19:48 | NUR ---
ADMINISTERED OXYCODONE PER MD ORDER. VS WNL. WILL CONTINUE TO MONITOR.
[2021-09-05 20:00] VITALS: BP 98/50
[2021-09-05] MEDS: MAGNESIUM OXIDE 400 MG TABLET PO SCH (21:20)
[2021-09-06] MEDS: oxyCODONE IR immediate release 5 MG PO SCH ×4 (02:14→20:36)
[2021-09-06] MEDS: MORPHINE SULFATE SR 15 MG TABLET.SA PO SCH ×3 (04:22→21:57)
--- NOTE | 2021-09-06 04:22 | NUR ---
ADMINISTERED SCHEDULED MORPHINE DOSE PER MD ORDER. VS WNL. WILL CONTINUE TO MONITOR
[2021-09-06] MEDS: BLOOD SUGAR DIAGNOSTIC 1 EACH STRIP IN SCH ×3 (06:00→18:00)
--- NOTE | 2021-09-06 07:59 | NUR ---
RN OPENING NOTES PATIENT IS AWAKE IN BED RESTING, A/O X4. NO S/S OF PAIN NOTED AT THIS TIME. ON ROOM AIR, NO DISTRESS OR SHORTNESS OF BREATH NOTED. IV ACCESS JENNY PICC LINE, INTACT AND PATENT, FLUSHING WELL. PATIENT HAVE MILES CATH, IN PLACE AND DRAINING WELL. FALL AND SAFETY MEASURES IN PLACE, BED ALARM ON, BED IN LOW AND LOCK POSITION, CALL LIGHT AND TABLE WITHIN EASY REACH, SIDE RAIL UP X2. WILL CONTINUE TO MONITOR.
[2021-09-06 08:00] VITALS: BP 106/55
[2021-09-06] MEDS: Z GUARD REMEDY 4 OZ OINT TP SCH (08:39)
[2021-09-06] MEDS: HEPARIN SODIUM, PORCINE 5000 UNITS/1 ML VIAL SQ SCH ×2 (08:40→22:11)
[2021-09-06] MEDS: ACETAMINOPHEN 325 MG TABLET PO PRN (08:52)
[2021-09-06] MEDS: CALCIUM CARBONATE (1250) 500 MG TABLET PO SCH (09:00)
[2021-09-06] MEDS: DOCUSATE SODIUM 250 MG CAPSULE PO SCH ×2 (09:00→17:00)
[2021-09-06] MEDS: ALPRAZOLAM 1 MG TABLET PO SCH ×2 (10:11→18:15)
[2021-09-06 16:00] VITALS: BP 104/58
--- NOTE | 2021-09-06 19:19 | NUR ---
RN NOTE While providing cleaning on patient, EQUIPMENT OILER notice skin irritation on the bottom of the patient. patient is noncompliance and had refused cleaning care several times. unable to take pictures due to patient being uncooperative. Patient is very heavy (700lbs) staff was not able to take pictures. will endorse to next shift to try again and to continue monitoring.
--- NOTE | 2021-09-06 19:41 | NUR ---
RN NOTE SKIN CONSULT WAS ORDERED.
--- NOTE | 2021-09-06 19:42 | NUR ---
RN CLOSING NOTES PATIENT IS AWAKE IN BED RESTING, A/O X4. NO S/S OF PAIN NOTED AT THIS TIME. ON ROOM AIR, NO DISTRESS OR SHORTNESS OF BREATH NOTED. IV ACCESS JENNY PICC LINE, INTACT AND PATENT, FLUSHING WELL. PATIENT HAVE MILES CATH, IN PLACE AND DRAINING WELL. FALL AND SAFETY MEASURES IN PLACE, BED ALARM ON, BED IN LOW AND LOCK POSITION, CALL LIGHT AND TABLE WITHIN EASY REACH, SIDE RAIL UP X2. WILL ENDORSE TO TRANSACTION PROCESSOR.
[2021-09-06 20:00] VITALS: BP 95/58
[2021-09-06] MEDS: MAGNESIUM OXIDE 400 MG TABLET PO SCH (21:57)
[2021-09-07] MEDS: oxyCODONE IR immediate release 5 MG PO SCH ×4 (03:04→19:55)
[2021-09-07] MEDS: MORPHINE SULFATE SR 15 MG TABLET.SA PO SCH ×3 (05:20→22:01)
[2021-09-07] MEDS: BLOOD SUGAR DIAGNOSTIC 1 EACH STRIP IN SCH ×4 (06:00→17:56)
--- NOTE | 2021-09-07 07:30 | NUR ---
MS RN CLOSING NOTE PATIENT IS AWAKE IN BED, A/O X 4. NO S/S OF PAIN NOTED AT THIS TIME. PT STABLE ON ROOM AIR, DISTRESS OR SOB NOTED, BREATHING EVEN AND UNLABORED. IV ACCESS ON JENNY PICC LINE, INTACT AND PATENT, FLUSHING WELL. MILES CATH IN PLACE AND DRAINING WELL. MEDICATIONS GIVEN ORDERED, PATIENT NEEDS MET THROUGHOUT SHIFT. PATIENT REFUSED Q2H TURNS AND PHOTO OF BUTTOCKS DESPITE EXPLANATION OF RISKS AND BENEFITS, PATIENT INSISTED SHE DIDN'T NEED TO BE CHANGED OR TURNED. FALL AND SAFETY MEASURES IN PLACE: BED ALARM ON, BED LOCKED IN LOW POSITION, CALL LIGHT AND TABLE WITHIN EASY REACH, SIDE RAIL UP X2. ENDORSED TO DAY SHIFT NURSE FOR CONTINUITY OF CARE
--- NOTE | 2021-09-07 07:53 | NUR ---
WOUND CARE CONSULT: PT ADAMANTLY REFUSED SKIN ASSESSMENT. PT NOTED TO BE ANGRY AND IRRITABLE. PT IS ON [employer] ETS AIRBED. RECOMMENDATIONS MADE FOR SKIN PROTECTION. DISCUSSED WITH NURSING STAFF. MD IN AGREEMENT WITH PLAN OF CARE.
--- NOTE | 2021-09-07 07:58 | NUR ---
Pt. refused xray..RN Sandrai aware.
[2021-09-07 08:00] VITALS: BP 110/59
[2021-09-07] MEDS: DOCUSATE SODIUM 250 MG CAPSULE PO SCH ×2 (09:00→17:00)
[2021-09-07] MEDS: ACETAMINOPHEN 325 MG TABLET PO PRN ×2 (09:24→20:04)
[2021-09-07] MEDS: ALPRAZOLAM 1 MG TABLET PO SCH ×2 (09:52→18:08)
[2021-09-07] MEDS: CALCIUM CARBONATE (1250) 500 MG TABLET PO SCH (09:52)
[2021-09-07] MEDS: HEPARIN SODIUM, PORCINE 5000 UNITS/1 ML VIAL SQ SCH ×2 (09:55→21:13)
[2021-09-07] MEDS: Z GUARD REMEDY 4 OZ OINT TP SCH (09:58)
--- NOTE | 2021-09-07 14:49 | NUR ---
SS Consult: Pt. Is a 50-year-old female. Pt. demonstrates adequate insight to the reason for hospitalization. Per pt., she was brought to hospital by ambulance. Pt. was oriented x4 and alert. During interview, pt. was capable of following directions and made appropriate eye-contact. Pt.s speech was at a normal rate. Pt.s mood was irritable. SW explored pt.s hx of mental health and substance abuse. Pt. reported no hx of mental health, substance abuse, suicidal or homicidal ideation. Pt. denies auditory hallucinations, visual hallucinations, paranoia, or delusions. SW explored pt.s living situation. Per pt., she lives alone in [place] [[address] [place] [address]]. Pt. stated that she does not live in [place]. Per pt., she was transferred to [place]. Per pt., she reports having no adequate support. Pt. stated that she has no family in [place]. Pt. mentioned that she does cannot take care of self and needs a caregiver. Pt. expressed that she wants to talk to a CM regarding placement/discharge. SW will notify CM. Plan: SW provided available resources and pt. rejected interest at this time. Pt. wants to speak with a CM.
--- NOTE | 2021-09-07 15:38 | NUR ---
RN NOTES GAVE OXYCODONE FOR 1500 BLOOD PRESSURE AND RESPIRATORY RATES WITHIN NORMAL RANGES.
[2021-09-07 16:00] VITALS: BP 102/59
--- NOTE | 2021-09-07 18:40 | NUR ---
MS RN CLOSING NOTES PATIENT IN BED, AWAKE.ALERT AND ORIENTED TIMES 4. VERBALLY RESPONSIVE. NO SIGNS OF ACUTE DISTRESS. ON ROOM AIR, TOLERATING WELL. NO SOB NOTED. NO RESPIRATORY DISTRESS NOTED.NO SIGNS OF PAIN OR DISCOMFORT NOTED. JENNY PICC LINE, INTACT AND PATENT, SL. F/C INTACT . PATIENT REFUSED WOUND CONSULT, SKIN CHECK AND REPOSITIONING.PATIENT REFUSED CXR, COLACE AND ACCU BLOOD SUGAR CHECKS. ALL OTHER DUE MEDS GIVEN ORDERED.SAFETY MEASURES MAINTAINED. CALL LIGHT AND TABLE WITHIN REACH. WILL ENDORSE INCOMING SHIFT FOR SHEREE.
--- NOTE | 2021-09-07 19:25 | NUR ---
MS RN OPENING NOTES RECEIVED PATIENT LAYING AWAKE IN BED. A/O X4. NO SIGNS AND SYMPTOMS OF DISTRESS NOTED AT THIS TIME. NO COMPLAINS OF PAIN OR DISCOMFORT AT THIS TIME. IV ACCESS JENNY PICC LINE SL. IV ACCESS PATENT AND INTACT. SAFETY PRECAUTIONS ENFORCED WITH BED LOCKED AND AT LOWEST POSITION. CALL LIGHT WITHIN REACH AT ALL TIMES. WILL CONTINUE TO MONITOR PATIENT.
[2021-09-07] MEDS: MAGNESIUM OXIDE 400 MG TABLET PO SCH (21:24)
--- NOTE | 2021-09-08 | NUR ---
MS RN NOTES PATIENT REFUSED ACCUCHECK. EXPLAINED RISKS AND BENEFITS. PATIENT STILL REFUSED. WILL CONTINUE TO MONITOR PATIENT.
[2021-09-08] MEDS: oxyCODONE IR immediate release 5 MG PO SCH ×4 (01:13→20:55)
[2021-09-08] MEDS: ACETAMINOPHEN 325 MG TABLET PO PRN ×2 (02:21→20:55)
[2021-09-08] MEDS: MORPHINE SULFATE SR 15 MG TABLET.SA PO SCH ×3 (04:56→22:38)
[2021-09-08] MEDS: BLOOD SUGAR DIAGNOSTIC 1 EACH STRIP IN SCH ×4 (06:00→18:00)
--- NOTE | 2021-09-08 06:01 | NUR ---
MS RN NOTES PATIENT REFUSED ACCUCHECK. EXPLAINED RISKS AND BENEFITS. PATIENT STILL REFUSED. WILL CONTINUE TO MONITOR PATIENT.
--- NOTE | 2021-09-08 06:41 | NUR ---
MS RN CLOSING NOTES PATIENT STILL LAYING AWAKE IN BED. A/O X4. PATIENT WITH REGULAR AND UNLABORED BREATHING ON ROOM AIR TOLERATED WELL. NO SIGNS AND SYMPTOMS OF DISTRESS NOTED AT THIS TIME. NO COMPLAINS OF PAIN OR DISCOMFORT AT THIS TIME. IV ACCESS JENNY PICC LINE SL. IV ACCESS PATENT AND INTACT. SAFETY PRECAUTIONS ENFORCED WITH BED LOCKED AND AT LOWEST POSITION. CALL LIGHT WITHIN REACH AT ALL TIMES. WILL ENDORSE CONTINUITY OF CARE TO DAY SHIFT NURSE.
--- NOTE | 2021-09-08 08:01 | NUR ---
MS RN OPENING NOTES RECEIVED PATIENT LAYING AWAKE IN BED. A/O X4. Pt IS ON ROOM AIR AND TOLERATING WELL. NO SIGNS AND SYMPTOMS OF DISTRESS NOTED AT THIS TIME. NO COMPLAINS OF PAIN OR DISCOMFORT AT THIS TIME. IV ACCESS R UA PICC LINE SL. IV ACCESS PATENT AND INTACT. SAFETY PRECAUTIONS ENFORCED WITH BED IS LOCKED AND IN LOWEST POSITION. CALL LIGHT AND BEDSIDE TABLE WITHIN REACH AT ALL TIMES. WILL CONTINUE TO MONITOR PATIENT.
[2021-09-08] MEDS: DOCUSATE SODIUM 250 MG CAPSULE PO SCH ×3 (09:00→17:00)
[2021-09-08] MEDS: Z GUARD REMEDY 4 OZ OINT TP SCH (09:11)
[2021-09-08] MEDS: CALCIUM CARBONATE (1250) 500 MG TABLET PO SCH (09:11)
[2021-09-08] MEDS: ALPRAZOLAM 1 MG TABLET PO SCH ×2 (09:12→16:52)
[2021-09-08] MEDS: HEPARIN SODIUM, PORCINE 5000 UNITS/1 ML VIAL SQ SCH ×2 (09:19→20:57)
[2021-09-08 09:20] VITALS: BP 93/52
--- NOTE | 2021-09-08 12:08 | NUR ---
RN NOTES ACCU CHECK Pt REFUSED ACUU CHECK. EXPLAINED THE BENEFITS AND Pt SILL REFUSED.
[2021-09-08 16:00] VITALS: BP 100/57
--- NOTE | 2021-09-08 19:37 | NUR ---
MS RN CLOSING NOTES Pt IS RESTING IN BED STILL LAYING AWAKE. A/O X4. PATIENT WITH REGULAR AND UNLABORED BREATHING ON ROOM AIR AND TOLERATING WELL. NO SIGNS AND SYMPTOMS OF DISTRESS NOTED AT THIS TIME. NO COMPLAINS OF PAIN OR DISCOMFORT AT THIS TIME. IV ACCESS R UA PICC LINE SL. IV ACCESS PATENT AND INTACT. Pt REFUSED SOME MEDS AND REFUSED SKIN ASSESSMENT. SAFETY PRECAUTIONS ENFORCED WITH BED LOCKED AND IN LOWEST POSITION. CALL LIGHT AND BEDSIDE TABLE WITHIN REACH AT ALL TIMES. WILL ENDORSE TO ONCOMING SHIFT
[2021-09-08 20:00] VITALS: BP 100/65
--- NOTE | 2021-09-08 20:08 | NUR ---
MS RN OPENING NOTES Pt IS RESTING IN BED STILL LAYING AWAKE. A/O X4. PATIENT WITH REGULAR AND UNLABORED BREATHING ON ROOM AIR AND TOLERATING WELL. NO SIGNS AND SYMPTOMS OF DISTRESS NOTED AT THIS TIME. NO COMPLAINS OF PAIN OR DISCOMFORT AT THIS TIME. IV ACCESS R UA PICC LINE SL. IV ACCESS PATENT AND INTACT. SAFETY PRECAUTIONS ENFORCED WITH BED LOCKED AND IN LOWEST POSITION. CALL LIGHT AND BEDSIDE TABLE WITHIN REACH AT ALL TIMES. WILL CONTINUE TO MONITOR.
[2021-09-08] MEDS: MAGNESIUM OXIDE 400 MG TABLET PO SCH (22:00)
--- NOTE | 2021-09-08 22:00 | NUR ---
MS RN NOTES PT REFUSED MG OXIDE X3 RISK AND BENEFITS EXPLAINED X3. PT STATED " I DON'T UNDERSTAND WHY YOU PEOPLE KEEP INSISTING ME TO TAKE THAT I DON'T NEED IT" PT IS ALSO REFUSING REPOSITIONING X3 RISK AND BENEFITS EXPLAINED X3 PT STATED " I AM FINE HOW I AM RIGHT KASH IF I NEED TO BE MOVED I WILL LET YOU KNOW" WILL CONTINUE TO MONITOR.
--- NOTE | 2021-09-09 00:05 | NUR ---
MS RN NOTES PT REFUSED AQ CHECKS X3 RISK AND BENEFITS EXPLAINED X3. WILL CONTINUE TO MONITOR.
[2021-09-09] MEDS: oxyCODONE IR immediate release 5 MG PO SCH ×4 (02:38→20:58)
[2021-09-09] MEDS: MORPHINE SULFATE SR 15 MG TABLET.SA PO SCH ×3 (05:24→22:32)
[2021-09-09] MEDS: BLOOD SUGAR DIAGNOSTIC 1 EACH STRIP IN SCH ×4 (06:00→17:32)
--- NOTE | 2021-09-09 07:06 | NUR ---
MS RN CLOSING NOTES NOTES Pt IS RESTING IN BED STILL LAYING AWAKE. A/O X4. PATIENT WITH REGULAR AND UNLABORED BREATHING ON ROOM AIR AND TOLERATING WELL. NO SIGNS AND SYMPTOMS OF DISTRESS NOTED AT THIS TIME. NO COMPLAINS OF PAIN OR DISCOMFORT AT THIS TIME. IV ACCESS JENNY PICC LINE SL. IV ACCESS PATENT AND INTACT. SAFETY PRECAUTIONS ENFORCED WITH BED LOCKED AND IN LOWEST POSITION. ALL DUE MEDS GIVEN AND TOLERATED WELL ALL NEEDS MET AND ANTICIPATED PT REFUSED REPOSITIONING X3 RISK AND BENEFITS EXPLAINED X3 PT STATED " WHO WOULD WANT TO BE MOVED AND REPOSITIONED AT NIGHT ? THAT MAKES NO SENSE I WANT TO BE REPOSITIONED IN THE DAY TIME" CALL LIGHT AND BEDSIDE TABLE WITHIN REACH AT ALL TIMES. WILL ENDORSE CARE TO DAY SHIFT NURSE.
[2021-09-09 07:28] LABS: BASOPHILS % (AUTO) 0.6 % (0.0-2.0); EOSINOPHILS % (AUTO) 2.5 % (0.0-6.0); HEMATOCRIT 39 % (33-45); HEMOGLOBIN 11.4 g/dL (11.5-14.8); LYMPHOCYTES # (AUTO) 0.9 K/uL (0.8-4.8); LYMPHOCYTES % (AUTO) 11.3 % (20.0-44.0); MEAN CORPUSCULAR HGB CONC 30 g/dl (31.0-36.0); MEAN CORPUSCULAR VOLUME 83 fL (82-100); MONOCYTES # (AUTO) 0.3 K/uL (0.1-1.30); MONOCYTES % (AUTO) 3.2 % (2.0-12.0); NEUTROPHILS # (AUTO) 6.7 K/uL (1.8-8.9); NEUTROPHILS % (AUTO) 82.4 % (43.0-81.0); PLATELET COUNT (AUTO) 153 K/uL (150-450); RED BLOOD CELL COUNT(AUTO) 4.67 MIL/uL (4.0-5.2); WHITE BLOOD COUNT (AUTO) 8.1 K/uL (4.3-11.0)
[2021-09-09 07:54] LABS: CALCIUM, SERUM 8.4 mg/dL (8.5-10.1); CREATININE 0.5 mg/dL (0.6-1.3); POTASSIUM 3.4 mmol/L (3.5-5.1)
[2021-09-09 08:48] VITALS: BP 94/56
[2021-09-09] MEDS: HEPARIN SODIUM, PORCINE 5000 UNITS/1 ML VIAL SQ SCH ×2 (09:00→20:58)
[2021-09-09] MEDS: DOCUSATE SODIUM 250 MG CAPSULE PO SCH ×2 (09:00→17:00)
[2021-09-09] MEDS: CALCIUM CARBONATE (1250) 500 MG TABLET PO SCH (09:00)
[2021-09-09] MEDS ORDERED: POTASSIUM CHLORIDE 20 MEQ TAB.PRT.SR PO SCH (10:30)
[2021-09-09] MEDS: ALPRAZOLAM 1 MG TABLET PO SCH ×2 (10:30→17:31)
[2021-09-09] MEDS: Z GUARD REMEDY 4 OZ OINT TP SCH (10:31)
[2021-09-09] MEDS: ACETAMINOPHEN 325 MG TABLET PO PRN (16:15)
--- NOTE | 2021-09-09 19:47 | NUR ---
RN CLOSING NOTES PATIENT IS AWAKE IN BED RESTING, A/O X4. NO S/S OF PAIN NOTED AT THIS TIME. ON ROOM AIR, NO DISTRESS OR SHORTNESS OF BREATH NOTED. IV ACCESS JENNY PICC LINE, INTACT AND PATENT, FLUSHING WELL. PATIENT HAVE MILES CATH, IN PLACE AND DRAINING WELL. PATIENT REFUSED TO BE CLEAN DURING THE SHIFT, MULTIPLE ATTEMPTS WERE MADE BUT PATIENT REFUSED EVERY TIME. FALL AND SAFETY MEASURES IN PLACE, BED ALARM ON, BED IN LOW AND LOCK POSITION, CALL LIGHT AND TABLE WITHIN EASY REACH, SIDE RAIL UP X2. WILL ENDORSE TO TELESALES SUPERVISOR.
[2021-09-09 20:00] VITALS: BP 95/46
[2021-09-09] MEDS: MAGNESIUM OXIDE 400 MG TABLET PO SCH (22:00)
[2021-09-10] MEDS: oxyCODONE IR immediate release 5 MG PO SCH ×4 (02:31→20:58)
[2021-09-10] MEDS: MORPHINE SULFATE SR 15 MG TABLET.SA PO SCH ×3 (05:29→22:22)
[2021-09-10] MEDS: BLOOD SUGAR DIAGNOSTIC 1 EACH STRIP IN SCH ×4 (05:54→17:26)
[2021-09-10 07:27] LABS: CALCIUM, SERUM 8.4 mg/dL (8.5-10.1); CREATININE 0.5 mg/dL (0.6-1.3); POTASSIUM 3.9 mmol/L (3.5-5.1)
--- NOTE | 2021-09-10 07:30 | NUR ---
MS RN OPENING NOTES RECEIVED PATIENT ON BED AWAKE AND A/O X4. ON ROOM AIR TOLERATING WELL. NO SOB NOTED. NOT IN DISTRESS. WITH NO COMPLAINTS OF PAIN OR DISCOMFORT AT THIS TIME. WITH IV ACCESS AT RIGHT UPPER ARM PICC LINE, SALINE LOCKED, PATENT AND INTACT. WITH MILES CATHETER IN PLACED DRAINING CLOUDY YELLOWISH URINE. SAFETY MEASURES IN PLACED. CALL LIGHT WITHIN REACH. BED ON LOWEST LOCKED POSITION, SIDE RAILS UP X2. WILL CONTINUE TO MONITOR.
[2021-09-10] MEDS: Z GUARD REMEDY 4 OZ OINT TP SCH (09:19)
[2021-09-10] MEDS: ALPRAZOLAM 1 MG TABLET PO SCH ×2 (09:19→12:53)
[2021-09-10] MEDS: DOCUSATE SODIUM 250 MG CAPSULE PO SCH ×3 (09:20→17:26)
[2021-09-10] MEDS: CALCIUM CARBONATE (1250) 500 MG TABLET PO SCH (09:20)
[2021-09-10] MEDS: HEPARIN SODIUM, PORCINE 5000 UNITS/1 ML VIAL SQ SCH (09:21)
[2021-09-10] MEDS: ACETAMINOPHEN 325 MG TABLET PO PRN (15:27)
--- NOTE | 2021-09-10 19:30 | NUR ---
MS RN CLOSING NOTES PATIENT ON BED AWAKE AND A/O X4. ON ROOM AIR TOLERATING WELL. NO SOB NOTED. NOT IN DISTRESS. WITH NO COMPLAINTS OF PAIN OR DISCOMFORT AT THIS TIME. WITH IV ACCESS AT RIGHT UPPER ARM PICC LINE, SALINE LOCKED, PATENT AND INTACT. WITH MILES CATHETER IN PLACED DRAINING CLOUDY TEA COLORED URINE WITH AN OUTPUT OF 700ML. PATIENT REFUSED TO BE CLEANED AND REFUSED TO CHANGE HER LINENS. PATIENT REFUSED BLOOD SUGAR CHECKS. SAFETY MEASURES IN PLACED. CALL LIGHT WITHIN REACH. BED ON LOWEST LOCKED POSITION, SIDE RAILS UP X2. WILL ENDORSE TO NEXT SHIFT FOR SHEREE.
[2021-09-10 20:00] VITALS: BP 103/59
[2021-09-10] MEDS: MAGNESIUM OXIDE 400 MG TABLET PO SCH (22:00)
--- NOTE | 2021-09-10 22:34 | NUR ---
GPS RN NOTES: PATIENT REFUSED 2200 MAGNESIUM OXIDE 400MG ORDERED.
--- NOTE | 2021-09-11 00:04 | NUR ---
GPS RN NOTES: PATIENT REFUSED 0000 ACCU CHEK. PER PATIENT, "I'M NOT DIABETIC".
[2021-09-11] MEDS: oxyCODONE IR immediate release 5 MG PO SCH ×4 (02:08→20:33)
[2021-09-11] MEDS: MORPHINE SULFATE SR 15 MG TABLET.SA PO SCH ×3 (05:23→22:03)
[2021-09-11] MEDS: BLOOD SUGAR DIAGNOSTIC 1 EACH STRIP IN SCH ×4 (06:00→18:00)
--- NOTE | 2021-09-11 06:18 | NUR ---
GPS RN NOTES: PATIENT REFUSED 0000 ACCU CHEK.
--- NOTE | 2021-09-11 07:01 | NUR ---
GPS RN CLOSING NOTES: PATIENT IS CURRENTLY IN BED, AWAKE A/O X4. PATIENT HAS NO S/S OF DISTRESS. RESPIRATION EVEN AND UNLABORED WITH EQUAL RISE AND FALL OF THE CHEST, ON ROOM AIR. NO BEHAVIORAL ISSUES THIS SHIFT. ALL PATIENT CARE NEEDS HAVE BEEN MET ANTICIPATED. WILL CONTINUE TO MONITOR AND ENDORSE TO AM SHIFT.
--- NOTE | 2021-09-11 07:15 | NUR ---
MS RN NOTE CORRECTION OF PREVIOUS DOCUMENTATION DONE ON 08/31/2021. PATIENT IS NOT ON MECHANICAL VENTILATOR. PLEASE DISREGARD DOCUMENTED SET-UP.
--- NOTE | 2021-09-11 07:18 | NUR ---
MS RN OPENING NOTES RECEIVED PATIENT ON BED AWAKE AND A/O X4. ON ROOM AIR TOLERATING WELL, NO SOB NOTED. NO COMPLAINTS OF PAIN OR DISCOMFORT AT THIS TIME. WITH IV ACCESS AT RIGHT UPPER ARM PICC LINE, SALINE LOCKED, PATENT AND INTACT. WITH MILES CATHETER IN PLACE DRAINING YELLOWISH URINE. SAFETY MEASURES IN PLACE. CALL LIGHT WITHIN REACH. BED ON LOWEST, LOCKED POSITION, SIDE RAILS UP X2. WILL CONTINUE TO MONITOR PATIENT.
[2021-09-11 08:23] VITALS: BP 97/60
--- NOTE | 2021-09-11 08:44 | NUR ---
MS RN NOTE PATIENT COMPLAINED OF PAIN ON HER RIGHT LEG. SHE SAID THAT SHE HAD THE PAIN FOR A FEW DAYS NOW AND THAT IT HAVE BECOME MORE INTENSE LATELY. UNABLE TO PINPOINT THE EXACT LOCATION. PATIENT SEEN BY DR. CARRILLO. WITH ORDERS MADE AND CARRIED OUT. WILL CONTINUE TO MONITOR PATIENT.
[2021-09-11] MEDS: DOCUSATE SODIUM 250 MG CAPSULE PO SCH ×2 (09:00→17:00)
[2021-09-11] MEDS: CALCIUM CARBONATE (1250) 500 MG TABLET PO SCH (09:00)
--- NOTE | 2021-09-11 09:10 | NUR ---
MS RN NOTE PATIENT SEEN BY DR. CARRILLO. WILL CONTINUE TO MONITOR PATIENT.
[2021-09-11] MEDS: Z GUARD REMEDY 4 OZ OINT TP SCH (10:22)
[2021-09-11] MEDS: ALPRAZOLAM 1 MG TABLET PO SCH ×2 (10:47→17:30)
[2021-09-11] MEDS: ACETAMINOPHEN 325 MG TABLET PO PRN (15:09)
[2021-09-11 16:37] VITALS: BP 101/64
--- NOTE | 2021-09-11 18:52 | NUR ---
MS RN CLOSING NOTES PATIENT ON BED AWAKE AND A/O X4. ON ROOM AIR TOLERATING WELL, NO SOB NOTED. NO COMPLAINTS OF PAIN OR DISCOMFORT AT THIS TIME. WITH IV ACCESS AT RIGHT UPPER ARM PICC LINE, SALINE LOCKED, PATENT AND INTACT. WITH MILES CATHETER IN PLACE DRAINING YELLOWISH URINE. SAFETY MEASURES IN PLACE. CALL LIGHT WITHIN REACH. BED ON LOWEST, LOCKED POSITION, SIDE RAILS UP X2. WILL ENDORSE TO NEXT SHIFT FOR CONTINUITY OF CARE.
--- NOTE | 2021-09-11 19:59 | NUR ---
MS RN OPENING NOTE PATIENT RECIEVED AWAKE IN BED. A/OX4. NO S/S OF DISTRESS; BREATHING SYMMETRICALLY. JENNY PICC PATENT. SAFETY MEASURES IN PLACE: BED AT LOWEST POSITION, RAILS X2, CALL ESCALERA WITHIN REACH. WILL CONTINUE TO MONITOR.
[2021-09-11 20:00] VITALS: BP 102/58
[2021-09-11] MEDS: MAGNESIUM OXIDE 400 MG TABLET PO SCH (22:00)
[2021-09-12] MEDS: oxyCODONE IR immediate release 5 MG PO SCH ×4 (02:34→20:37)
[2021-09-12] MEDS: MORPHINE SULFATE SR 15 MG TABLET.SA PO SCH ×3 (05:20→21:38)
[2021-09-12] MEDS: BLOOD SUGAR DIAGNOSTIC 1 EACH STRIP IN SCH ×5 (06:00→23:30)
--- NOTE | 2021-09-12 06:51 | NUR ---
MS RN CLOSING NOTES PATIENT IS AWAKE WATCHING TV IN HER ROOM. A/OX4. NO S/S OF DISTRESS, BREATHING SYMMETRICAL. JENNY PICC INTACT AND PATENT. SAFETY MEASURES IN PLACE: BED AT LOWEST POSITION, RAILS UP X2, CALL ESCALERA WITHIN REACH. WILL ENDORSE TO NEXT SHIFT FOR SHEREE.
[2021-09-12] MEDS: CALCIUM CARBONATE (1250) 500 MG TABLET PO SCH (08:17)
[2021-09-12] MEDS: Z GUARD REMEDY 4 OZ OINT TP SCH (08:18)
[2021-09-12] MEDS: DOCUSATE SODIUM 250 MG CAPSULE PO SCH ×2 (08:18→17:00)
[2021-09-12 08:43] VITALS: BP 95/56
[2021-09-12] MEDS: ALPRAZOLAM 1 MG TABLET PO SCH ×2 (09:35→18:20)
--- NOTE | 2021-09-12 19:30 | NUR ---
MS RN OPENING NOTE PATIENT RECEIVED AWAKE IN BED. A/OX4. NO S/S OF DISTRESS, BREATHING SYMMETRICAL. JENNY PICC PATENT. SAFETY MEASURES IN PLACE: BED AT LOWEST POSITION, RAILS UP X2, CALL ESCALERA WITHIN REACH. WILL CONTINUE TO MONITOR.
[2021-09-12 20:00] VITALS: BP 96/56
[2021-09-12 21:18] VITALS: BP 96/57
[2021-09-12] MEDS: MAGNESIUM OXIDE 400 MG TABLET PO SCH (22:00)
[2021-09-13] MEDS: oxyCODONE IR immediate release 5 MG PO SCH ×4 (02:03→20:40)
[2021-09-13] MEDS: ACETAMINOPHEN 325 MG TABLET PO PRN ×2 (02:11→08:28)
--- NOTE | 2021-09-13 02:15 | NUR ---
RN NOTE PATIENT IS DECLINING TO HAVE STAFF CLEAN HER OR CHANGE HER LINENS. I NEED TO COORDINATE WITH ADDITIONAL PEOPLE TO AID IN HOLDING PATIENT IN ORDER TO CLEAN HER SHE IS ~700+ LBS. I TRIED CONVINCING HER, BUT SHE INSISTED ON DECLINING SUCH SERVICES FROM STAFF. I NOTIFIED MY DICTATING MACHINE TRANSCRIBER AND CHARGE NURSE. I WILL CONTINUE TO ENCOURAGE THE PATIENT TO LET ME AND OTHER STAFF CHANGE HER LINENS WELL CLEAN HER.
[2021-09-13] MEDS: MORPHINE SULFATE SR 15 MG TABLET.SA PO SCH ×3 (05:12→22:03)
[2021-09-13] MEDS: BLOOD SUGAR DIAGNOSTIC 1 EACH STRIP IN SCH ×3 (06:00→17:14)
--- NOTE | 2021-09-13 06:39 | NUR ---
MS RN CLOSING NOTE PATIENT AWAKE IN BED. A/OX4. NO S/S OF DISTRESS, BREATHING SYMMETRICAL. SAFETY MEASURES IN PLACE: BED AT LOWEST POSITION, RAILS UP X2, CALL ESCALERA WITHIN REACH. WILL ENDORSE TO NEXT SHIFT FOR SHEREE.
--- NOTE | 2021-09-13 07:45 | NUR ---
MS RN OPENING NOTES PATIENT IN BED AWAKE AND A/O X4. ON ROOM AIR TOLERATING WELL, NO SOB NOTED. NO COMPLAINTS OF PAIN OR DISCOMFORT AT THIS TIME. WITH IV ACCESS AT RIGHT UPPER ARM PICC LINE, SALINE LOCKED, PATENT AND INTACT. WITH MILES CATHETER IN PLACE DRAINING BROWN URINE. SAFETY MEASURES IN PLACE. BED IN LOW POSITION AND LOCKED, RAILS UP X2, CALL LIGHT WITHIN REACH. WILL CONTINUE TO MONITOR PATIENT.
[2021-09-13] MEDS: Z GUARD REMEDY 4 OZ OINT TP SCH (08:13)
[2021-09-13] MEDS: DOCUSATE SODIUM 250 MG CAPSULE PO SCH ×2 (08:14→17:00)
[2021-09-13] MEDS: CALCIUM CARBONATE (1250) 500 MG TABLET PO SCH (08:14)
[2021-09-13 08:30] VITALS: BP 95/52
[2021-09-13] MEDS: ALPRAZOLAM 1 MG TABLET PO SCH ×2 (11:45→17:00)
[2021-09-13 18:56] VITALS: BP 102/56
--- NOTE | 2021-09-13 19:12 | NUR ---
MS RN CLOSING NOTES PATIENT REMAINS IN BED, AWAKE, A/O X4. PATIENT ON ROOM AIR; BREATHING EVEN AND UNLABORED. NO S/S OF DISTRESS NOTED. ALL NEEDS ATTENDED DURING THE DAY. WILL ENDORSE TO DYE TANK TENDER NURSE FOR SHEREE.
[2021-09-13 21:05] VITALS: BP 99/55
[2021-09-13] MEDS: MAGNESIUM OXIDE 400 MG TABLET PO SCH (22:00)
--- NOTE | 2021-09-13 23:54 | NUR ---
MS RN NOTES PT REFUSING REPOSITIONING X3 RISK AND BENEFITS EXPLAINEDX3 WILL CONTINUE TO MONITOR.
[2021-09-14] MEDS: oxyCODONE IR immediate release 5 MG PO SCH ×4 (02:37→19:39)
[2021-09-14] MEDS: ACETAMINOPHEN 325 MG TABLET PO PRN ×3 (02:39→19:39)
[2021-09-14] MEDS: MORPHINE SULFATE SR 15 MG TABLET.SA PO SCH ×3 (05:07→21:55)
[2021-09-14] MEDS: BLOOD SUGAR DIAGNOSTIC 1 EACH STRIP IN SCH ×4 (05:07→17:30)
--- NOTE | 2021-09-14 06:54 | NUR ---
MS RN NOTES PATIENT IN BED AWAKE AND A/O X4. ON ROOM AIR TOLERATING WELL, NO SOB NOTED. NO COMPLAINTS OF PAIN OR DISCOMFORT AT THIS TIME. WITH IV ACCESS AT RIGHT UPPER ARM PICC LINE, SALINE LOCKED, PATENT AND INTACT. WITH MILES CATHETER IN PLACE DRAINING BROWN URINE. SAFETY MEASURES IN PLACE. BED IN LOW POSITION AND LOCKED, RAILS UP X2, CALL LIGHT WITHIN REACH. ALL NURSING NEEDS MET THROUGHOUT THE SHIFT. WILL ENDORSE CARE TO DAY SHIFT NURSE.
--- NOTE | 2021-09-14 07:30 | NUR ---
MS RN OPENING NOTES RECEIVED PATIENT IN BED AWAKE AND A/O X4. ON ROOM AIR TOLERATING WELL, NO SOB NOTED. NO COMPLAINTS OF PAIN OR DISCOMFORT AT THIS TIME. WITH IV ACCESS AT RIGHT UPPER ARM PICC LINE, SALINE LOCKED, PATENT AND INTACT. WITH MILES CATHETER IN PLACE DRAINING BROWN URINE. SAFETY MEASURES IN PLACE. BED IN LOW POSITION AND LOCKED, RAILS UP X2, CALL LIGHT WITHIN REACH. WILL CONTINUE TO MONITOR PATIENT.
[2021-09-14 08:00] VITALS: BP 112/64
[2021-09-14] MEDS: Z GUARD REMEDY 4 OZ OINT TP SCH (08:16)
[2021-09-14] MEDS: CALCIUM CARBONATE (1250) 500 MG TABLET PO SCH (08:18)
[2021-09-14] MEDS: DOCUSATE SODIUM 250 MG CAPSULE PO SCH ×2 (08:18→17:00)
[2021-09-14] MEDS: ALPRAZOLAM 1 MG TABLET PO SCH ×2 (09:37→17:30)
[2021-09-14 16:00] VITALS: BP 120/58
--- NOTE | 2021-09-14 19:44 | NUR ---
MS RN CLOSING NOTES PATIENT REMAINS IN BED, AWAKE, A/O X4. PATIENT ON ROOM AIR; BREATHING EVEN AND UNLABORED. NO S/S OF DISTRESS NOTED. ALL NEEDS ATTENDED DURING THE DAY. WILL ENDORSE TO CHIEF OPHTHALMIC TECHNICIAN NURSE FOR SHEREE.
[2021-09-14 20:00] VITALS: BP 92/48
[2021-09-14] MEDS: MAGNESIUM OXIDE 400 MG TABLET PO SCH (22:00)
[2021-09-15] MEDS: ACETAMINOPHEN 325 MG TABLET PO PRN ×2 (02:00→13:14)
[2021-09-15] MEDS: oxyCODONE IR immediate release 5 MG PO SCH ×3 (02:00→13:14)
[2021-09-15] MEDS: MORPHINE SULFATE SR 15 MG TABLET.SA PO SCH ×3 (04:03→20:04)
[2021-09-15] MEDS: BLOOD SUGAR DIAGNOSTIC 1 EACH STRIP IN SCH ×4 (06:00→17:20)
--- NOTE | 2021-09-15 07:08 | NUR ---
MS RN CLOSING NOTES PATIENT STILL LAYING AWAKE IN BED. A/O X4. NO SIGNS AND SYMPTOMS OF DISTRESS NOTED AT THIS TIME. NO COMPLAINS OF PAIN OR DISCOMFORT AT THIS TIME. IV ACCESS JENNY PICC LINE SL. IV ACCESS PATENT AND INTACT. SAFETY PRECAUTIONS ENFORCED WITH BED LOCKED AND AT LOWEST POSITION. CALL LIGHT WITHIN REACH AT ALL TIMES. WILL ENDORSE CONTINUITY OF CARE TO DAY SHIFT NURSE.
[2021-09-15 08:00] VITALS: BP 92/52
[2021-09-15] MEDS: CALCIUM CARBONATE (1250) 500 MG TABLET PO SCH (08:07)
[2021-09-15] MEDS: DOCUSATE SODIUM 250 MG CAPSULE PO SCH ×2 (08:07→16:56)
[2021-09-15] MEDS: Z GUARD REMEDY 4 OZ OINT TP SCH (08:08)
[2021-09-15] MEDS: ALPRAZOLAM 1 MG TABLET PO SCH ×2 (09:15→16:56)
[2021-09-15] MEDS ORDERED: IV NS 0.9% 500 ML IV ONE (12:00)
[2021-09-15 12:42] LABS: BASOPHILS % (AUTO) 0.7 % (0.0-2.0); EOSINOPHILS % (AUTO) 0.4 % (0.0-6.0); HEMATOCRIT 41 % (33-45); HEMOGLOBIN 11.9 g/dL (11.5-14.8); LYMPHOCYTES % (AUTO) 15.3 % (20.0-44.0); MEAN CORPUSCULAR HGB CONC 29 g/dl (31.0-36.0); MEAN CORPUSCULAR VOLUME 83 fL (82-100); MONOCYTES # (AUTO) 0.5 K/uL (0.1-1.30); NEUTROPHILS # (AUTO) 5.1 K/uL (1.8-8.9); NEUTROPHILS % (AUTO) 76.6 % (43.0-81.0); PLATELET COUNT (AUTO) 177 K/uL (150-450); WHITE BLOOD COUNT (AUTO) 6.6 K/uL (4.3-11.0)
[2021-09-15 12:54] LABS: CALCIUM, SERUM 7.9 mg/dL (8.5-10.1); CREATININE 0.7 mg/dL (0.6-1.3); POTASSIUM 4.3 mmol/L (3.5-5.1)
[2021-09-15 16:00] VITALS: BP 97/56
--- NOTE | 2021-09-15 20:27 | NUR ---
MS RN OPENING AND DISCHARGE NOTE: RECEIVED REPORT AT PATIENT'S BEDSIDE @ ~1915. PATIENT IN BED, AWAKE. A&OX4 NAD, VSS. PATIENT IS CALM AND COOPERATIVE WITH CARE. BED IN LOW/LOCKED POSITION, SIDE RAILS UP X2. PRESSURE WOUND PREVENTION AIR MATTRESS IN PLACE. F/C IN PLACE DRAINING REX COLORED URINE WITH SEDIMENT. PATIENT DEMONSTRATES ABILITY TO USE CALL LIGHT AND VERBALIZE NEEDS EFFECTIVELY. CALL LIGHT AND FREQUENTLY USED ITEMS WITHIN EASY REACH. SHORTLY AFTER REPORT RECEIVED, [facility] ARRIVED WITH 8 locomotive electrician FOR TRANSPORT. F/C DRAINED. 500ML OUT. JENNY PICC D/C'D CATHETER TIP INTACT. PRESSURE DRESSING APPLIED. LUNG SOUNDS CTA. PATIENT TOLERATING RA WITHOUT DIFFICULTY. VS FOLLOWS: 100/56; 104; 20; 98.9; SPO2 94% ON RA. ADMINISTERED MORPHINE PO PER ORDER FOR GENERALIZED PAIN. PATIENT VERBALIZES UNDERSTANDING OF DISCHARGE INSTRUCTIONS, SIGNED AND GIVEN COPY OF INSTRUCTIONS. VERBALIZES GOING HOME WITH ALL BELONGINGS, SIGNED COPY OF INVENTORY SHEET AND COPY GIVEN. TRANSPORT TEAM TRANSFERRED PATIENT SLIDE-BY TO [facility]. SAFETY PRECAUTIONS IN PLACE. PATIENT DENIES DISCOMFORT AND EXPRESSES HER DESIRE TO BE AT THE NEW FACILITY. PATIENT LEFT WITH TRANSPORT TEAM 2029. CALLED MARY AT [facility] NOTIFYING HER OF PATIENT'S DEPARTURE TO FACILITY.
== END 2021-09-15 20:30 | DRG 133 ==
LOC: ER 18:34 → ICU 08-23 01:46 → TELE 08-26 12:36 → MED 08-28 10:31
PROVIDERS: ADMIT Registered Nurse; ATTEND Internal Medicine
PROC: 5A1945Z Respiratory Ventilation, 24-96 Consecutive Hours (ICD-10-PCS; principal; 2021-08-23)
PROC: 0BH17EZ Insertion of Endotracheal Airway into Trachea, Via Natural or Artificial Opening (ICD-10-PCS; 2021-08-23)
PROC: 02HV33Z Insertion of Infusion Device into Superior Vena Cava, Percutaneous Approach (ICD-10-PCS; 2021-08-23)
PROC: B548ZZA Ultrasonography of Superior Vena Cava, Guidance (ICD-10-PCS; 2021-08-23)
PROC: 5A09357 Assistance with Respiratory Ventilation, Less than 24 Consecutive Hours, Continuous Positive Airway Pressure (ICD-10-PCS; 2021-08-23)
DX: J96.22 Acute and chronic respiratory failure with hypercapnia (principal); J15.6 Pneumonia due to other Gram-negative bacteria; D68.59 Other primary thrombophilia; E87.2 Acidosis; E66.2 Morbid (severe) obesity with alveolar hypoventilation; I50.9 Heart failure, unspecified; Z68.45 Body mass index [BMI] 70 or greater, adult; G47.33 Obstructive sleep apnea (adult) (pediatric); Z20.822 Contact with and (suspected) exposure to COVID-19; E87.6 Hypokalemia; F41.1 Generalized anxiety disorder; G89.4 Chronic pain syndrome; M25.561 Pain in right knee; Z88.1 Allergy status to other antibiotic agents; Z88.8 Allergy status to other drugs, medicaments and biological substances; J45.909 Unspecified asthma, uncomplicated
CPT/HCPCS: 31720; 36415; 36569; 36600; 71045-TC; 73552; 73590-TC; 80048-TC; 80053-TC; 80076-TC; 82550-TC; 82803-TC; 82962-TC; 83615-TC; 83735-TC; 83880; 84100-TC; 84443-TC; 84478-TC; 84484-TC; 85025-TC; 85378-TC; 85730-TC; 86140-TC; 87040-TC; 87081-TC; 87086-TC; 93307-TC; 93970-TC; 94002-TC; 94003-TC; 94760-TC; 94762-TC; 94799-TC; 97112-TC; 97530-TC; A4216; C9803; G0378; J0330; J0456; J1100; J1644; J1650; J1815; J1940; J1956; J2405; J3490; J7040; J7050; J7060; U0003